=== PATIENT | female | born 1955 | race Caucasian/White ===

== ENCOUNTER 2019-05-23 15:08 | Observation (INO) | payer MEDICARE ==
--- NOTE | 2019-05-23 15:53 | ED ---
General Adult HPI - General Chief complaint: Arrhythmia/Palpitations Stated complaint: A-Fib Time Seen by Provider: 05/23/19 15:35 Source: patient, RN notes reviewed Mode of arrival: ambulatory Limitations: no limitations - History of Present Illness Initial comments: Patient is a pleasant [age]-year-old female presenting to the emergency department with atrial fibrillation. Patient has been feeling fatigued for the last several days. Patient went to her doctor and had testing done with concerns for atrophic ablation. Patient was advised to come to the emergency department. Patient denies any chest pain or palpitations. No dyspnea. Patient did have atrial fibrillation twice, once was 2 years ago and once was around 8 years ago. Patient is not currently on any anticoagulation. - Related Data Allergies Allergy/AdvReac Type Severity Reaction Status Date / Time prochlorperazine Allergy Anaphylaxis Verified 05/23/19 15:24 [From Compazine] Review of Systems ROS Statement: Those systems with pertinent positive or pertinent negative responses have been documented in the HPI. ROS Other: All systems not noted in ROS Statement are negative. Constitutional: Denies: fever Eyes: Denies: eye pain ENT: Denies: ear pain Respiratory: Denies: cough, dyspnea Cardiovascular: Denies: chest pain, palpitations Endocrine: Reports: fatigue Gastrointestinal: Denies: abdominal pain Genitourinary: Denies: dysuria Musculoskeletal: Denies: back pain Skin: Denies: rash Neurological: Denies: weakness Past Medical History Past Medical History: Atrial Fibrillation, Hypertension Additional Past Medical History / Comment(s): lupus History of Any Multi-Drug Resistant Organisms: None Reported Past Surgical History: Cholecystectomy, Hysterectomy, Joint Replacement, Orthopedic Surgery Additional Past Surgical History / Comment(s): lt knee, sinus surgery Past Psychological History: No Psychological Hx Reported Smoking Status: Never smoker Past Alcohol Use History: None Reported Past Drug Use History: None Reported General Exam Limitations: no limitations General appearance: alert, in no apparent distress Head exam: Present: normocephalic Eye exam: Present: normal appearance, PERRL ENT exam: Present: normal oropharynx Neck exam: Present: normal inspection Respiratory exam: Present: normal lung sounds bilaterally Cardiovascular Exam: Present: irregular rhythm Expanded Peripheral pulses: 2+: Radial (R), Radial (L), Dorsalis Pedis (R), Dorsalis Pedis (L) GI/Abdominal exam: Present: soft. Absent: tenderness Extremities exam: Present: normal inspection. Absent: pedal edema, calf tenderness Neurological exam: Present: alert Psychiatric exam: Present: normal affect, normal mood Skin exam: Present: normal color Course Vital Signs 05/23/19 15:19 Temperature 97.6 F Pulse Rate 95 Respiratory 20 Rate Blood Pressure 158/88 O2 Sat by Pulse 96 Oximetry EKG Findings - EKG Comments: EKG Findings:: H a fibrillation with a rate of 93. QRS 90. QT 332. QTC 412. Left axis. Normal QRS. Nonspecific T waves. Medical Decision Making - Medical Decision Making Patient updated. Case discussed with Dr. Kam, who will admit for observation covering for Dr. Quintana. - Radiology Data Radiology results: image reviewed (Chest x-ray shows borderline cardiomegaly) Disposition Clinical Impression: Atrial fibrillation Disposition: ADMITTED IP TO THIS HOSP Is patient prescribed a controlled substance at d/c from ED?: No Referrals: Marla Garza MD [Primary Care Provider] - 1-2 days Decision Time: 15:53
[2019-05-23] MEDS ORDERED: NALOXONE 0.4 MG/ML 1 ML VIAL IV PRN (16:03)
[2019-05-23] MEDS ORDERED: HEPARIN SODIUM,PORCINE 5,000 UNIT/ML 1 ML VIAL IV PRN (16:03)
[2019-05-23] MEDS ORDERED: HEPARIN SODIUM,PORCINE 5,000 UNIT/ML 1 ML VIAL IV ONE (16:03)
[2019-05-23] MEDS ORDERED: DILTIAZEM 125 MG in SODIUM CHLORIDE 0.9% 100 ML IV SCH (16:15)
[2019-05-23] MEDS ORDERED: HEPARIN SOD,PORK IN 0.45% NACL 25,000 UNIT in 0.45% NACL 1 250ML.BAG IV SCH (16:15)
[2019-05-23 16:21] LABS: INR 1.1 (<1.2); Partial Thromboplastin Time 23.7 sec (22.0-30.0); Prothrombin Time 11.4 sec (9.0-12.0)
[2019-05-23] MEDS: SODIUM CHLORIDE 0.9% 1,000 ML IV SCH (16:34)
[2019-05-23 16:37] LABS: T4, Free (Free Thyroxine) 1.9 ng/dL (0.78-2.19)
--- NOTE | 2019-05-23 17:40 | P.HPIM ---
History of Present Illness Chief Complaint: Generalized weakness This is a very pleasant 63-year-old female with history of asthma, hypertension, hypothyroidism and paroxysmal atrial fibrillation who is presenting here from primary care physician office for evaluation of atrial fibrillation with rapid ventricular response. Patient presented today at her physician's office due to 1 month of worsening generalized weakness and shortness of breath and found to be in arrhythmia, irregular and tachycardic with a rate of [id number]. Patient was sent to ER for further evaluation Patient's symptoms started about a month ago. Couple weeks prior to this, patient had episode of URI like symptoms which she treated at home and symptoms resolved. Soon after she started noticing lack of energy, decreased stamina and exertional shortness of breath. There is no associated cough fever chills malaise chest pain palpitations or leg swelling or orthopnea. She would occasionally wake up in the middle of the night with shortness of breath that would resolve promptly after getting up in the recliner. Since she has history of asthma she attributed her symptoms to asthma flare and did not seek any medical attention. Over the last couple days her symptoms became more pronounced and shortness of breath was even at rest. She went then to her [facility] physician office who noticed the patient is in atrial fibrillation and secondary to emergency department. Patient denies any fever chills chest pain nausea vomiting abdominal pain dysuria polyuria headaches or vision changes. Patient reports that she had episode of atrial fibrillation for the first time about 10 years ago. She was treated and told the symptoms went away and she was not placed on any permanent therapy. She had another episode about 2 years ago when she had to be admitted to intensive care unit to [facility] and per patient she was cardioverted and discharged home again she did not end up on any long-term treatment or anticoagulation at that time. She reports having a stress test and echocardiogram at that time. She follows with Dr. Benavides from cardiology although she did not have any recent appointments. She denies taking any beta blockers, Cardizem, aspirin or anticoagulation. Patient believes that in February of last year she had an episode of palpitation and cyanosis shortness of breath that resolved quickly and she did not have a checkup. She has history of hypothyroidism which is taking a steady dose of levothyroxine and her TSH today is 2.3. She reports no new home medications or [id number] medications. She denies any alcohol, drug or tobacco use. Review of Systems Review of system was performed and is negative except mentioned in HPI Past Medical History Past Medical History: Atrial Fibrillation, Hypertension Additional Past Medical History / Comment(s): lupus History of Any Multi-Drug Resistant Organisms: None Reported Past Surgical History: Cholecystectomy, Hysterectomy, Joint Replacement, Orthopedic Surgery Additional Past Surgical History / Comment(s): lt knee, sinus surgery Past Psychological History: No Psychological Hx Reported Smoking Status: Never smoker Past Alcohol Use History: None Reported Past Drug Use History: None Reported Medications and Allergies Allergies Allergy/AdvReac Type Severity Reaction Status Date / Time prochlorperazine Allergy Anaphylaxis Verified 05/23/19 15:24 [From Compazine] Physical Exam Vitals: Vital Signs Temp Pulse Resp BP Pulse Ox 05/23/19 16:35 78 16 133/83 94 L 05/23/19 15:19 97.6 F 95 20 158/88 96 Intake and Output 05/23/19 05/23/19 05/23/19 06:59 14:59 22:59 Other: Weight 73.799 kg Vital Signs: I have reviewed the vital signs. GENERAL: Well-nourished, Well-developed , no apparent distress, cooperative Eyes: PERRL, extraoculry movements intact, clear conjunctiva Head: : Atraumatic external nose and ears, oropharyngeal mucosa is moist without lesions or exudates Neck: Symmetric, trachea midline, No thyromegaly, no masses or neck vain pulsation, no neck rigidity CVS: Irregularly irregular rhythm with rate in 70s, No murmurs or gallops. Peripheral pulses 2+ and equal in all extremities. RESP: Unlabored respiratory effort. Clear to auscultation bilaterally. Abdomen: Bowel sounds present in all 4 quadrants, Soft to palpation, Nontender/Nondistended, No hepatosplenomegaly, no hernias or masses, no CVA tnd erness Musculoskeletal: Extremities w/o deformity, No cyanosis or clubbing, no joint swelling Skin: Warm, Dry. No rashes or lesions Neuro: wood floor layer II-XII grossly intact, motor strenght 5/5 i upper and lower extremities, no clonus, patellar DTRs 2+ and sympetrical Psych: Awake, Alert, & Oriented (AAO) x3 Appropriate mood and affect Assessment and Plan Assessment: 1. Paroxysmal atrial fibrillation with rapid ventricular response Onset of her A. fib is uncertain but she's been having symptoms for about a month at least Clinically no obvious triggers, she does not appear to have active infection, TSH is normal, no clinical signs of dehydration and electrolytes normal She has relatively recent episode of URI. We will be checking an echo, sed rate and CRP Her rate has been controlled well with Cardizem drip and we will plan to switch her to oral Cardizem Her [id number] score is at least 2 for her gender and history of hypertension. She has no history of strokes or TIA or prior vascular disease. No history of diabetes. We will evaluate with echo if there is any CHF as her proBNP is quite elevated and she is cardiomegaly and the chest x-ray. She has no personal history of bleeding and her hemoglobin is normal. She denies history of aspirin or NSAIDs She will remain on heparin until evaluated by cardiology and might need to be switched to appropriate oral anticoagulants Cardiology consult 2. Hypertension Blood pressure has been stable and we can hold her home medications for now to allow more Cardizem 3. Hypothyroidism Continue home levothyroxine 4. Mild intermittent asthma Currently stable in no any active flare Patient is a full code is surrogate decision maker and is this was discussed with him Patient is currently admitted under observation for this we will be reevaluated once we have echocardiogram results and based on the response to the above treatment
[2019-05-23] MEDS: DILTIAZEM ORAL 60 MG TAB PO SCH ×3 (22:25→22:40)
[2019-05-24] MEDS: LEVOTHYROXINE 75 MCG TAB PO SCH (05:53)
[2019-05-24] MEDS: LEVOTHYROXINE 100 MCG TAB PO SCH (05:53)
[2019-05-24 06:41] LABS: Basophils # (A) 0.2 k/uL (0-0.2); Basophils % (A) 2 %; Eosinophils # (A) 1.7 k/uL (0-0.7); Eosinophils % (A) 22 %; HCT 39.6 % (34.0-46.0); HGB 12.4 gm/dL (11.4-16.0); Lymphocytes % (A) 26 %; MCH 30.3 pg (25.0-35.0); MCHC 31.3 g/dL (31.0-37.0); MCV 96.7 fL (80.0-100.0); Mean Platelet Volume 9.2; Monocytes # (A) 0.4 k/uL (0-1.0); Monocytes % (A) 6 %; Neutrophils # (A) 3.3 k/uL (1.3-7.7); Neutrophils % (A) 42 %; Platelet Count 236 k/uL (150-450); RDW 12.2 % (11.5-15.5)
[2019-05-24 06:50] LABS: INR 1.1 (<1.2); Partial Thromboplastin Time 64.7 sec (22.0-30.0); Prothrombin Time 11.3 sec (9.0-12.0)
[2019-05-24] MEDS: DILTIAZEM ORAL 60 MG TAB PO SCH ×4 (08:54→20:27)
[2019-05-24] MEDS: MONTELUKAST 10 MG TAB PO SCH (08:54)
[2019-05-24] MEDS: LOSARTAN 50 MG TAB PO SCH (08:54)
[2019-05-24] MEDS: SYMBICORT 160-4.5 MCG INHALER INHALATION SCH ×2 (09:25→21:02)
[2019-05-24 10:09] LABS: Erythrocyte Sedimentation Rate 6 mm/hr (0-20)
[2019-05-24 11:50] LABS: WBC 7.7 k/uL (3.8-10.6)
--- NOTE | 2019-05-24 16:47 | ECHOF ---
Referral Reason:a fibrillation MEASUREMENTS -------- HEIGHT: 170.2 cm WEIGHT: 71.2 kg BP: 136/79 RVIDd: 3.1 cm (< 3.3) IVSd: 1.1 cm (0.6 - 1.1) LVIDd: 4.0 cm (3.9 - 5.3) LVPWd: 1.1 cm (0.6 - 1.1) IVSs: 1.5 cm LVIDs: 3.2 cm LVPWs: 1.7 cm LA Diam: 3.8 cm (2.7 - 3.8) LAESV Index (A-L): 44.26 ml/m Ao Diam: 3.1 cm (2.0 - 3.7) AV Cusp: 2.3 cm (1.5 - 2.6) MV EXCURSION: 19.740 mm (> 18.000) MV EF SLOPE: 148 mm/s (70 - 150) EPSS: 0.6 cm RAP: 5.00 mmHg RVSP: 37.94 mmHg FINDINGS -------- Atrial fibrillation. This was a technically good study. The left ventricular size is normal. There is borderline concentric left ventricular hypertrophy. Overall left ventricular systolic function is mild-moderately impaired with, an EF between 40 - 45 % . The right ventricle is normal in size. LA is severely dilated >40 ml/m2 The right atrium is normal in size. Interatrial and interventricular septum intact. The aortic valve is trileaflet and appears structurally normal. The mitral valve leaflets are mildly thickened. Mild mitral regurgitation is present. Mild tricuspid regurgitation present. There is mild pulmonary hypertension. The right ventricular systolic pressure, as measured by Doppler, is 37.94mmHg. Trace/mild (physiologic) pulmonic regurgitation. The aortic root size is normal. Normal inferior vena cava with normal inspiratory collapse consistent with estimated right atrial pre ssure of 5 mmHg. There is no pericardial effusion. CONCLUSIONS -------- 1. Atrial fibrillation. 2. This was a technically good study. 3. The left ventricular size is normal. 4. There is borderline concentric left ventricular hypertrophy. 5. Overall left ventricular systolic function is mild-moderately impaired with, an EF between 40 - 45 %. 6. The right ventricle is normal in size. 7. LA is severely dilated >40 ml/m2 8. The right atrium is normal in size. 9. Interatrial and interventricular septum intact. 10. The aortic valve is trileaflet and appears structurally normal. 11. The mitral valve leaflets are mildly thickened. 12. Mild mitral regurgitation is present. 13. Mild tricuspid regurgitation present. 14. There is mild pulmonary hypertension. 15. The right ventricular systolic pressure, as measured by Doppler, is 37.94mmHg. 16. Trace/mild (physiologic) pulmonic regurgitation. 17. The aortic root size is normal. 18. Normal inferior vena cava with normal inspiratory collapse consistent with estimated right atrial pressure of 5 mmHg. 19. There is no pericardial effusion. MARINE OPERATIONS COORDINATOR: Adri Akhtar RDCS
[2019-05-24] MEDS: RIVAROXABAN 20 MG TAB PO SCH (17:20)
[2019-05-24] MEDS: SODIUM CHLORIDE 0.9% 1,000 ML IV SCH (17:20)
--- NOTE | 2019-05-24 21:53 | CONS ---
CONSULTATION CHIEF COMPLAINT: New onset atrial fibrillation. HISTORY OF PRESENT ILLNESS: Cheryle is a 63-year-old lady with history of paroxysmal atrial fibrillation, asthma, hypertension, and hypothyroidism, who was with her primary care physician complaining of worsening fatigue, weakness and shortness of breath. She was found to be in atrial fibrillation with poorly controlled ventricular rate hence she was sent to the emergency room from where she got admitted. At the time of my evaluation, she is still is in irregular heart rhythm and however heart rate is well controlled. She is currently on intravenous heparin, oral Cardizem and Cozaar. She had an echocardiogram this morning. I am going to review the results. PAST MEDICAL HISTORY: Significant for paroxysmal atrial fibrillation, hypothyroidism, hypertension. CURRENT MEDICATIONS: Include Singulair, losartan 100 daily, Synthroid, cardia XT. ALLERGIES: ALLERGIC TO COMPAZINE. FAMILY HISTORY: Negative for premature coronary artery disease. SOCIAL HISTORY: Negative for smoking, EtOH abuse, or drug abuse. REVIEW OF SYSTEMS: HEENT is unremarkable. Cardiac as described above. Respiratory negative. GI negative. GENITOURINARY negative. ALLERGY negative. SKIN negative. MUSCULOSKELETAL negative. ENDOCRINE negative. ONCOLOGICAL: Negative. CONSTITUTIONAL negative. CENTRAL NERVOUS SYSTEM: Negative. Rest of the system review is not relevant. EXAM: At rest heart rate is 76 beats per minute, irregular. Blood pressure is 140/89, respiratory rate is 18, O2 sat is 95% on room air. There is no jugular venous distention. Carotid upstroke is normal. There is no bruit. Chest exam reveals good air entry bilaterally. Heart exam reveals first and second heart sounds, irregular rhythm. No murmur. Abdomen is soft, nontender. Exam of extremities did not reveal any edema. Peripheral pulses are felt. CUTTER HAND exam did not reveal focal neurological deficits. LABS: Show a hemoglobin of 12.4, platelet count is 236. TSH is 2.6, free T4 is 1.9. Her sodium is low. AST, ALT are slightly elevated. ASSESSMENT: Persistent atrial fibrillation with controlled ventricular rate. PLAN: Patient will continue on IV heparin. If the patient is covered for Eliquis or Xarelto, we will switch her to 1 of these 2 medications. I will review the echocardiogram. Once she is anticoagulated for 3 weeks, patient will undergo LILI cardioversion. She will follow up with her primary live hanger. MMODL / IJN: [id number] /
[2019-05-25] MEDS: LEVOTHYROXINE 75 MCG TAB PO SCH (06:18)
[2019-05-25] MEDS: LEVOTHYROXINE 100 MCG TAB PO SCH (06:18)
[2019-05-25 06:52] LABS: Basophils # (A) 0.1 k/uL (0-0.2); Basophils % (A) 2 %; Eosinophils # (A) 1.4 k/uL (0-0.7); Eosinophils % (A) 20 %; HCT 42.5 % (34.0-46.0); HGB 13.4 gm/dL (11.4-16.0); Lymphocytes # (A) 1.5 k/uL (1.0-4.8); Lymphocytes % (A) 22 %; MCH 30.5 pg (25.0-35.0); MCHC 31.5 g/dL (31.0-37.0); MCV 96.9 fL (80.0-100.0); Mean Platelet Volume 8.5; Monocytes # (A) 0.3 k/uL (0-1.0); Monocytes % (A) 5 %; Neutrophils # (A) 3.2 k/uL (1.3-7.7); Neutrophils % (A) 48 %; Platelet Count 257 k/uL (150-450); RBC 4.39 m/uL (3.80-5.40); RDW 12.1 % (11.5-15.5); WBC 6.7 k/uL (3.8-10.6)
[2019-05-25 07:10] LABS: INR 1.2 (<1.2); Prothrombin Time 12.5 sec (9.0-12.0)
[2019-05-25] MEDS: SYMBICORT 160-4.5 MCG INHALER INHALATION SCH (07:15)
--- NOTE | 2019-05-25 08:25 | P.PN ---
Subjective Patient is feeling well this morning. She does not have any palpitations chest pain shortness of breath. Her energy level is significantly better. She remains in atrial fibrillation rate controlled in 70s. She was started on Xarelto per cardiology with which she is quite comfortable. We discussed risks and benefits of anticoagulation. Objective - Vital Signs Vital signs: Vital Signs Temp 97.7 F 05/25/19 05:21 Pulse 72 05/25/19 05:21 Resp 16 05/25/19 05:21 BP 153/97 05/25/19 05:21 Pulse Ox 97 05/25/19 05:21 Intake & Output 05/24/19 05/25/19 05/25/19 18:59 06:59 18:59 Intake Total 1080 Balance 1080 Weight 72.3 kg Intake: Intake, IV Titration 180 Amount Sodium Chloride 0.9% 1, 180 000 ml @ 20 mls/hr IV . Q24H ELY Rx#:[id number] Oral 900 Other: # Voids 1 - Exam Patient is awake alert no any distress Lungs are clear to auscultation except cardiovascular she is irregularly irregular rate control S1-S2 Abdomen soft on tenderness Extremities without any edema - Labs CBC & Chem 7: 05/25/19 05:55 Labs: Abnormal Lab Results - Last 24 Hours (Table) 05/24/19 05/25/19 05/25/19 Range/Units 05:37 05:55 05:55 Eosinophils # 1.7 H 1.4 H (0-0.7) k/uL PT 12.5 H (9.0-12.0) sec INR 1.2 H (<1.2) Assessment and Plan Assessment: 1. Paroxysmal atrial fibrillation with rapid ventricular response Onset of her A. fib is uncertain but she's been having symptoms for about a month at least Clinically no obvious triggers, she does not appear to have active infection, TSH is normal, no clinical signs of dehydration and electrolytes normal She has relatively recent episode of URI. We will be checking an echo, sed rate and CRP Her rate has been controlled well with Cardizem drip and we will plan to switch her to oral Cardizem Her [id number] score is at least 2 for her gender and history of hypertension. She has no history of strokes or TIA or prior vascular disease. No history of diabetes. We will evaluate with echo if there is any CHF as her proBNP is quite elevated and she is cardiomegaly and the chest x-ray. She has quite enlarged left atrium with puts her at even more elevated risk of thromboembolism. She has no personal history of bleeding and her hemoglobin is normal. She denies history of aspirin or NSAIDs Patient started on Xarelto and long-acting Cardizem. We discussed risk and benefits onto coagulation and patient was comfortable to proceed with it. 2. Hypertension Blood pressure has been stable 3. Hypothyroidism Continue home levothyroxine TSH is normal 4. Mild intermittent asthma Currently stable in no any active flare Plan for discharge today if okay with cardiology. Patient will follow-up in next day or 2 with her primary care physician to recheck her blood pressure and she opted to follow-up with cardiology here as instructed.
--- NOTE | 2019-05-25 08:27 | P.PN ---
Subjective No new events. No shortness of breath or chest pain or palpitations. Objective - Vital Signs Vital signs: Vital Signs Temp 97.7 F 05/25/19 05:21 Pulse 72 05/25/19 05:21 Resp 16 05/25/19 05:21 BP 153/97 05/25/19 05:21 Pulse Ox 97 05/25/19 05:21 Intake & Output 05/24/19 05/25/19 05/25/19 18:59 06:59 18:59 Intake Total 1080 Balance 1080 Weight 72.3 kg Intake: Intake, IV Titration 180 Amount Sodium Chloride 0.9% 1, 180 000 ml @ 20 mls/hr IV . Q24H ELY Rx#:[id number] Oral 900 Other: # Voids 1 - Exam Patient is awake alert no any distress Lungs are clear to auscultation except cardiovascular she is irregularly irregular rate control S1-S2 Abdomen soft on tenderness Extremities without any edema - Labs CBC & Chem 7: 05/25/19 05:55 Labs: Abnormal Lab Results - Last 24 Hours (Table) 05/24/19 05/25/19 05/25/19 Range/Units 05:37 05:55 05:55 Eosinophils # 1.7 H 1.4 H (0-0.7) k/uL PT 12.5 H (9.0-12.0) sec INR 1.2 H (<1.2) Assessment and Plan Assessment: 1. Paroxysmal atrial fibrillation with rapid ventricular response Onset of her A. fib is uncertain but she's been having symptoms for about a month at least Clinically no obvious triggers, she does not appear to have active infection, TSH is normal, no clinical signs of dehydration and electrolytes normal She has relatively recent episode of URI. We will be checking an echo, sed rate and CRP Her rate has been controlled well with Cardizem drip and we will plan to switch her to oral Cardizem Her [id number] score is at least 2 for her gender and history of hypertension. She has no history of strokes or TIA or prior vascular disease. No history of diabetes. We will evaluate with echo if there is any CHF as her proBNP is quite elevated and she is cardiomegaly and the chest x-ray. She has quite enlarged left atrium with puts her at even more elevated risk of thromboembolism. She has no personal history of bleeding and her hemoglobin is normal. She denies history of aspirin or NSAIDs Patient started on Xarelto and long-acting Cardizem. We discussed risk and benefits onto coagulation and patient was comfortable to proceed with it. 2. Hypertension Blood pressure has been stable 3. Hypothyroidism Continue home levothyroxine TSH is normal 4. Mild intermittent asthma Currently stable in no any active flare Plan for discharge today if okay with cardiology. Patient will follow-up in next day or 2 with her primary care physician to recheck her blood pressure and she opted to follow-up with cardiology here as instructed.
[2019-05-25] MEDS ORDERED: DILTIAZEM CD 240 MG CAP.ER.24H PO SCH (09:00)
[2019-05-25 09:08] VITALS: RESP 18
[2019-05-25] MEDS: RIVAROXABAN 20 MG TAB PO SCH (09:14)
[2019-05-25] MEDS: MONTELUKAST 10 MG TAB PO SCH (09:14)
[2019-05-25] MEDS: LOSARTAN 50 MG TAB PO SCH (09:14)
[2019-05-25] MEDS ORDERED: METOPROLOL TARTRATE 25 MG TAB PO SCH (11:30)
[2019-05-25 13:14] VITALS: PULSE 90
[2019-05-25 16:26] VITALS: BP 141/88; TEMP 97.8
--- NOTE | 2019-05-25 17:33 | P.DS ---
Providers Date of admission: 05/23/19 16:04 Attending physician: Ritika Lyles DO Consults: 05/23/19 16:04 Consult Physician Urgent Consulting Provider: Moose Miranda Consult Reason/Comments: a fib Do you want consulting provider notified?: Yes Primary care physician: Marla Garza [place] [facility] Course: Date of discharge: 05/25/2019 Discharge diagnoses: Atrial fibrillation with rapid ventricular response Consultants: Dr. Lanier cardiology Pertinent studies and results: Echocardiogram: EF 4045 percent and severe dilation of LA Discharge medications: Cardizem LA 120 mg twice a day (home medication discontinued " Xarelto 20 mg daily at bedtime Omeprazole Continuation of her usual home medications: Levothyroxine Losartan Montelukast Hospital course: This is a very pleasant 63-year-old female who was sent from primary care office physician after it was a technically she has atrial fibrillation with rapid ventricular response in the office. She has been experiencing intermittent dyspnea, chest discomfort and palpitations for about a month prior to admission and they got particularly severe on the day of admission. Hospital and was found that she has A. fib with RVR. Heart rate was in 100 Paul 110 with a stable blood pressure. Initial blood work did not show any significant abnormalities. Chest x-ray did not show any acute abnormalities. She was started on heparin and Cardizem drip. She remained in atrial fibrillation and her rate was controlled in 70s with stable blood pressure. Subsequently she was converted to oral Cardizem and Xarelto as per cardiology recommendations. Patient was placed on anticoagulation after discussion of risks and benefits. Her thromboembolic risk is elevated given hypertension and her age and significant dilation of left atrium on echo. She does not have any personal history of bleeding. She reported some family history of peptic ulcer disease but not personal history. She has history of bariatric surgery. We will advise her to refrain from usage of any NSAIDs or aspirin at this point of time. We advised her to to start omeprazole We will advise patient to obtain usual vitamin levels as appropriate follow-up for her weight loss with her primary care physician. Cardiology recommended patient to remain on Xarelto and Cardizem and follow-up in 3 weeks for LILI and further management. On the day of discharge patient had some fluctuations in heart rate. She went bradycardic with added metoprolol hence cardiology recommended against beta blockers at this time. Patient will be contacting sheet roller operator office tomorrow upon discharge. I did offer patient to stay To be observed but she had her decided to go home and follow-up with sheet roller operator tomorrow morning. Patient was cleared by cardiology to be discharged today on above-mentioned medications. Plan - Discharge Summary Discharge Rx Participant: No New Discharge Prescriptions: New Rivaroxaban [Xarelto] 20 mg PO W/SUPPER #30 tab Omeprazole [PriLOSEC] 20 mg PO AC-BRKFST #30 cap Continue Montelukast [Singulair] 10 mg PO DAILY Levothyroxine Sodium [Synthroid] 175 mcg PO DAILY Fluticasone Propion/Salmeterol [Fluticasone-Salmeterol 500-50] 1 inhalation PO BID Losartan Potassium 100 mg PO DAILY Diltiazem HCl [Cartia Xt] 240 mg PO DAILY #30 cap Discharge Medication List Fluticasone Propion/Salmeterol [Fluticasone-Salmeterol 500-50] 1 inhalation PO BID 05/23/19 [History] Levothyroxine Sodium [Synthroid] 175 mcg PO DAILY 05/23/19 [History] Losartan Potassium 100 mg PO DAILY 05/23/19 [History] Montelukast [Singulair] 10 mg PO DAILY 05/23/19 [History] Diltiazem HCl [Cartia Xt] 240 mg PO DAILY #30 cap 05/25/19 [Rx] Omeprazole [PriLOSEC] 20 mg PO AC-BRKFST #30 cap 05/25/19 [Rx] Rivaroxaban [Xarelto] 20 mg PO W/SUPPER #30 tab 05/25/19 [Rx] Follow up Appointment(s)/Referral(s): Marla Garza MD [Primary Care Provider] - 1-2 days Rhett Paiz MD [STAFF PHYSICIAN] - 1-2 Days ([facility] will call with appointment; please contact office if appointment not scheduled [phone]) Patient Instructions/Handouts: Rivaroxaban (By mouth), A-fib (Atrial Fibrillation) (DC) Activity/Diet/Wound Care/Special Instructions: Do not use any NSAIDs like Motrin or naproxen or aspirin while on Xarelto Discharge Disposition: HOME SELF-CARE
--- NOTE | 2019-05-25 23:52 | PN ---
PROGRESS NOTE The patient remains in atrial fibrillation. She is actually in controlled ventricular rate with a heart rate of 85 beats per minute. She had episodes of fast ventricular rate. On exam, comfortable at rest. Heart rate is negative. Blood pressure 148/92. Respiratory rate 18. Chest exam reveals good air entry bilaterally. Heart exam reveals first and second heart sounds, irregular rhythm. Abdomen soft. Exam of the extremities did not reveal any edema. Peripheral pulses are felt. An echocardiogram on this exam revealed mild LV dysfunction with an ejection fraction of 40 to 45%. There is mild mitral and tricuspid regurgitation noted also. ASSESSMENT: Persistent atrial fibrillation with poorly controlled ventricular rate. PLAN: I will increase the dose of Lopressor to 25 b.i.d. Continue the Cozaar. Continue the Cardizem and Xarelto. She is stable for discharge and have outpatient follow up and she will need an outpatient stress test given the cardiomyopathy noted on the echo. MMODL / IJN: [id number] /
== END 2019-05-25 17:54 | disposition home or self-care (01) ==
LOC: EC 15:08 → 1SOBS 16:04 → 3SCARD 16:36
PROVIDERS: ADMIT Internal Medicine; ATTEND Internal Medicine
DX: I48.0 Paroxysmal atrial fibrillation (principal); I10 Essential (primary) hypertension; E03.9 Hypothyroidism, unspecified; J45.20 Mild intermittent asthma, uncomplicated; M32.9 Systemic lupus erythematosus, unspecified; I08.1 Rheumatic disorders of both mitral and tricuspid valves; Z88.8 Allergy status to other drugs, medicaments and biological substances; Z79.890 Hormone replacement therapy; Z79.899 Other long term (current) drug therapy; Z90.49 Acquired absence of other specified parts of digestive tract; Z90.710 Acquired absence of both cervix and uterus; Z96.652 Presence of left artificial knee joint
CPT/HCPCS: 93005 ×2; 96366 ×3; 96376; 96368; 96365; 99285; 36415; 94640 ×3; 93306; 84439; 84481; 83880; 85652; 84443; 85025 ×2; 85610 ×3; 85730 ×2; 86140; G0378 ×3; J1644 ×2

== ENCOUNTER → 2019-05-23 | Outpatient (CLI) | payer MEDICARE ==
--- NOTE | 2019-05-23 11:17 | XR ---
EXAMINATION TYPE: XR chest 2V DATE OF EXAM: 05/23/2019 COMPARISON: NONE TECHNIQUE: PA and lateral views submitted. HISTORY: Shortness of breath FINDINGS: The lungs are clear and there is no pneumothorax, pleural effusion, or focal pneumonia. Heart size at the upper limits of normal. No overt failure. Hypertrophic and degenerative change of the spine. H ypertrophic change right AC joint. IMPRESSION: 1. No acute process. Borderline to mild cardiomegaly. No overt failure.
[2019-05-23 12:19] LABS: HCT 44.8 % (34.0-46.0); HGB 14.3 gm/dL (11.4-16.0); MCH 30.6 pg (25.0-35.0); MCHC 31.9 g/dL (31.0-37.0); MCV 95.9 fL (80.0-100.0); Mean Platelet Volume 8.4; Platelet Count 334 k/uL (150-450); RBC 4.67 m/uL (3.80-5.40); RDW 12.1 % (11.5-15.5); WBC 9.9 k/uL (3.8-10.6)
[2019-05-23 12:32] LABS: ALT 35 U/L (4-34); AST 30 U/L (14-36); African American GFR (CKD) 74 (>60 ml/min/1.73 sqM); Albumin 4.3 g/dL (3.5-5.0); Albumin/Globulin Ratio 1.5; Alkaline Phosphatase 69 U/L (38-126); Anion Gap 9 mmol/L; Blood Urea Nitrogen 16 mg/dL (7-17); Calcium 9.3 mg/dL (8.4-10.2); Carbon Dioxide 25 mmol/L (22-30); Chloride 101 mmol/L (98-107); Globulin 2.9 g/dL; Glucose 91 mg/dL (74-99); LDH 485 U/L (313-618); Non-African American GFR(CKD) 64 (>60 ml/min/1.73 sqM); Potassium 4.1 mmol/L (3.5-5.1); Sodium 135 mmol/L (137-145); Total Protein 7.2 g/dL (6.3-8.2)
[2019-05-23 13:02] LABS: Creatine Kinase MB 0.8 ng/mL (0.0-2.4); Troponin I <0.012 ng/mL (0.000-0.034)
== END | disposition home or self-care (01) ==
LOC: LABWHC1 10:53
PROVIDERS: ATTEND Family Medicine
DX: I51.7 Cardiomegaly (principal); I48.91 Unspecified atrial fibrillation; R06.00 Dyspnea, unspecified; R06.02 Shortness of breath; R07.9 Chest pain, unspecified
CPT/HCPCS: 36415; 71046; 80053; 82553; 83615; 83735; 84443; 84484; 85027; 85379; 93005

== ENCOUNTER → 2019-07-04 | Day surgery (SDC) | payer MEDICARE ==
[2019-07-02 11:34] VITALS: BMI 24.3
[~2019-07-04] MED LIST: BENZOCAINE SPRAY 1 CAN TOPICAL ONE; LACTATED RINGERS 1,000 ML IV SCH; LIDOCAINE 1% (10MG/ML) FOR IV START INTRADERMA PRN; PROPOFOL 10 MG/ML 20 ML VIAL IV ONE; SODIUM CHLORIDE 0.9% 1,000 ML IV SCH
[2019-07-04 06:45] VITALS: TEMP 97.9
[2019-07-04 07:04] LABS: Glucose,Whole Blood 110 mg/dL (75-99)
[2019-07-04 07:33] LABS: Calcium 8.8 mg/dL (8.4-10.2); Potassium 4.3 mmol/L (3.5-5.1)
[2019-07-04 08:30] VITALS: RESP 18
[2019-07-04 10:28] VITALS: BP 174/86; PULSE 65
--- NOTE | 2019-07-04 13:44 | LTR ---
DATE OF SERVICE: 07/04/19 RE: Cheryle Johnson Dear Marla; I performed transesophageal echo and cardioversion on your patient, Cheryle Johnson. A detailed report is enclosed for your records. I am happy to report to you that patient converted to sinus rhythm. I hope that the patient stays in sinus rhythm. If she does not, I am going to start her on rhythm suppressive therapy either in the form of flecainide or Rythmol and make another attempt at cardioversion. Thank you for giving me the privilege to participate in the care of this pleasant lady. Sincerely, MD KADE Stoner / KIM: [id number] /
--- NOTE | 2019-07-31 09:09 | ECHOT ---
TRANSESOPHAGEAL ECHOCARDIOGRAM DATE OF PROCEDURE: 07/04/2019. INDICATION: Persistent atrial fibrillation. PROCEDURE: After obtaining informed consent, transesophageal echocardiogram was performed in left lateral position using an Omniplane probe. Local and IV sedation were obtained by the dough braker. The patient tolerated the procedure well without any obvious immediate complications. FINDINGS: 1. There is no evidence of intracardiac thrombus within the left atrium, right atrium, right ventricle or left ventricle or left atrial appendage. 2. Left ventricle has normal size and systolic function. 3. Left atrium appears mildly enlarged. 4. Aorta is free of aneurysm or dissection. 5. Interatrial septum: There is no evidence of [id number] shunt by color-flow Doppler or kfioo-nj-dynl shunt by agitated saline contrast study. 6. Mitral valve is anatomically normal. There is mild to moderate mitral regurgitation noted. 7. Tricuspid valve appears normal. There is mild tricuspid regurgitation noted. 8. Aortic valve is a 3-leaflet valve. There is no evidence of aortic stenosis or regurgitation. CONCLUSIONS: 1. Preserved left ventricular systolic function. 2. No evidence of intracardiac thrombus. 3. The patient will proceed with cardioversion. MMODL / IJN: [id number] /
--- NOTE | 2019-07-31 09:11 | CE ---
CARDIAC ELECTROPHYSIOLOGY REPORT CARDIOVERSION NOTE: After obtaining informed consent, cardioversion was performed for persistent atrial fibrillation. After making sure that the patient does not have any intracardiac thrombus and patient had been adequately anticoagulated with a novel anticoagulant. Patient received one 200 joules of synchronized DC current shock following which she converted to sinus rhythm. PLAN: Patient will continue with the anticoagulant. KADE / ROBINSONN: [id number] /
== END ==
LOC: CATHCVL 06:30
PROVIDERS: ATTEND Internal Medicine Cardiovascular Disease
DX: I48.19 Other persistent atrial fibrillation (principal); I08.1 Rheumatic disorders of both mitral and tricuspid valves; I10 Essential (primary) hypertension; I42.9 Cardiomyopathy, unspecified; Z79.890 Hormone replacement therapy; Z79.01 Long term (current) use of anticoagulants; Z79.899 Other long term (current) drug therapy; Z88.8 Allergy status to other drugs, medicaments and biological substances
CPT/HCPCS: 93312; 93005; 93325; 92960; 80048; J2704; 93320

== ENCOUNTER → 2020-07-15 | Outpatient (CLI) | payer MEDICARE ==
--- NOTE | 2020-07-23 12:00 | MM ---
Reason for exam: screening (asymptomatic). Last mammogram was performed 1 year and 6 months ago. History: Patient is postmenopausal. Took estrogen for 10 years beginning at age 36. Physical Findings: A clinical breast exam by your physician is recommended on an annual basis and results should be correlated with mammographic findings. MG 3D Screening Mammo W/Cad Bilateral CC and MLO view(s) were taken. Prior study comparison: January 27, 2019, mammogram, performed at [facility]. December 12, 2017, mammogram. There are scattered fibroglandular densities. There is chronic nodularity bilaterally. A few scattered benign punctate calcifications. Oil cyst calcifications redemonstrated. medial right breast. No significant changes when compared with prior studies. ASSESSMENT: Negative, BI-RAD 1 RECOMMENDATION: Routine screening mammogram of both breasts in 1 year.
== END | disposition home or self-care (01) ==
LOC: RADMAMWWP 09:34
PROVIDERS: ATTEND Family Medicine
DX: Z12.31 Encounter for screening mammogram for malignant neoplasm of breast (principal)
CPT/HCPCS: 77063; 77067

== ENCOUNTER → 2020-07-21 | Outpatient (CLI) | payer MEDICARE | END | disposition home or self-care (01) | LOC: LABWHC1 12:32 | PROVIDERS: ATTEND Family Medicine | DX: Z20.822 Contact with and (suspected) exposure to COVID-19 (principal); R07.0 Pain in throat; R05 Cough | CPT/HCPCS: U0003; C9803; U0005 ==

== ENCOUNTER 2024-08-16 18:26 | Inpatient (IN) | payer MEDICARE ==
--- NOTE | 2024-08-16 18:57 | ED ---
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 Patient endorses associated intermittent palpitations. Denies radiating pain, presyncope, dizziness, diaphoresis, current dyspnea. Patient states she did experience shortness of breath starting 2 days ago that resolved prior to start of current symptoms. Endorses use of Eliquis. Patient has a DNR order. Denies fever, chills, abdominal pain, N/V/D. MD Complaint: rapid heart beat, palpitations Onset/Timin -: hour(s) Time: 17:30 Context: occurred during rest Arrhythmia History: atrial fibrillation Associated Symptoms: chest pain, shortness of breath (Prior to current symptoms, started 2 days ago, now resolved) - Related Data Home Medications Medication Instructions Recorded Confirmed Fluticasone Propion/Salmeterol 1 inhalation PO BID 05/23/19 07/04/19 [Fluticasone-Salmeterol 500-50] Levothyroxine Sodium [Synthroid] 175 mcg PO DAILY 05/23/19 07/04/19 Losartan Potassium 50 mg PO HS 05/23/19 07/04/19 Montelukast [Singulair] 10 mg PO HS 05/23/19 07/04/19 Metoprolol Succinate [Toprol XL] 50 mg PO HS 07/02/19 07/04/19 Rivaroxaban [Xarelto] 20 mg PO W/SUPPER 07/02/19 07/04/19 Previous Rx's Medication Instructions Recorded Omeprazole [PriLOSEC] 20 mg PO AC-BRKFST #30 cap 05/25/19 amLODIPine [Norvasc] 5 mg PO DAILY #90 tab 07/04/19 Allergies Allergy/AdvReac Type Severity Reaction Status Date / Time prochlorperazine Allergy Anaphylaxis Verified 08/16/24 18:38 [From Compazine] Review of Systems ROS Statement: Those systems with pertinent positive or pertinent negative responses have been documented in the HPI. ROS Other: All systems not noted in ROS Statement are negative. Past Medical History Past Medical History: Atrial Fibrillation, Asthma, CVA/TIA, Hypertension, Osteoarthritis (OA) Additional Past Medical History / Comment(s): lupus, migraines, Stroke (July 2024) History of Any Multi-Drug Resistant Organisms: None Reported Past Surgical History: Cholecystectomy, Hysterectomy, Joint Replacement, Orthopedic Surgery Additional Past Surgical History / Comment(s): lt knee replaced, sinus surgery Past Anesthesia/Blood Transfusion Reactions: Previous Problems w/ Anesthesia Additional Past Anesthesia/Blood Transfusion Reaction / Comment(s): slow to wake up Past Psychological History: No Psychological Hx Reported Smoking Status: Never smoker Past Alcohol Use History: None Reported Past Drug Use History: None Reported General Exam Limitations: no limitations General appearance: alert, in no apparent distress Head exam: Present: atraumatic, normocephalic, normal inspection Eye exam: Present: normal appearance, PERRL, EOMI. Absent: scleral icterus, conjunctival injection, periorbital swelling ENT exam: Present: normal exam, mucous membranes moist Neck exam: Present: normal inspection. Absent: tenderness, meningismus, lymphadenopathy Respiratory exam: Present: normal lung sounds bilaterally. Absent: respiratory distress, wheezes, rales, rhonchi, stridor Cardiovascular Exam: Present: regular rate, normal rhythm, normal heart sounds. Absent: systolic murmur, diastolic murmur, rubs, gallop, clicks GI/Abdominal exam: Present: soft, normal bowel sounds. Absent: distended, tenderness, guarding, rebound, rigid Extremities exam: Present: normal inspection, full ROM, normal capillary refill. Absent: tenderness, pedal edema, joint swelling, calf tenderness Back exam: Present: normal inspection Neurological exam: Present: alert, oriented X3, CN II-XII intact, other (Residual right side facial weakness noted) Psychiatric exam: Present: normal affect, normal mood Skin exam: Present: warm, dry, intact, normal color. Absent: rash Course Vital Signs 08/16/24 08/16/24 08/16/24 18:30 20:09 20:55 Temperature 98.1 F Pulse Rate 60 117 H 66 Respiratory 16 20 16 Rate Blood Pressure 113/91 122/70 116/66 O2 Sat by Pulse 97 95 95 Oximetry 08/16/24 22:25 Temperature Pulse Rate 78 Respiratory 18 Rate Blood Pressure 137/67 O2 Sat by Pulse 97 Oximetry Medical Decision Making - Medical Decision Making Was pt. sent in by a medical professional or institution (, LUIS, MONORAIL OPERATOR, urgent care, hospital, or prison...) When possible be specific @ -[facility] Did you speak to anyone other than the patient for history (EMS, parent, family, police, friend...)? What history was obtained from this source @ -No Did you review nursing and triage notes (agree or disagree)? Why? @ -I reviewed and agree with nursing and triage notes Were old charts reviewed (outside hosp., previous admission, EMS record, old EKG, old radiological studies, urgent care reports/EKG's, prison records)? Report findings @ -No old charts were reviewed Differential Diagnosis (chest pain, altered mental status, abdominal pain women, abdominal pain men, vaginal bleeding, weakness, fever, dyspnea, syncope, headache, dizziness, GI bleed, back pain, seizure, CVA, palpatations, mental health, musculoskeletal)? @ -Differential Chest Pain: Stable Angina, Unstable Angina, STEMI, NSTEMI Aortic Dissection, Pneumothorax, Musculoskeletal, Esophageal Spasm GERD, Cholecystitis, Pancreatitis, Zoster, this is not meant to be an all-inclusive list. EKG interpreted by me (3pts min.). @ -A-fib with RVR. Lead III T wave inversion noted. No ST deviation ventricular rate 105 bpm, QRS 106 ms, QTc 413 ms. X-rays interpreted by me (1pt min.). @ -CXR shows no acute cardiopulmonary process. CT interpreted by me (1pt min.). @ -None done U/S interpreted by me (1pt. min.). @ -None done What testing was considered but not performed or refused? (CT, X-rays, U/S, labs)? Why? @ -None What meds were considered but not given or refused? Why? @ -None Did you discuss the management of the patient with other professionals (professionals i.e. LUIS Bonilla, MONORAIL OPERATOR, lab, RT, psych nurse, social scientist, floor and wall applier liquid, teacher, fire officer, director of casework)? Give summary @ -No Was smoking cessation discussed for >3mins.? @ -No Was critical care preformed (if so, how long)? @ -No Were there social determinants of health that impacted care today? How? (Homelessness, low income, unemployed, alcoholism, drug addiction, transportation, low edu. Level, literacy, decrease access to med. care, fdc, rehab)? @ -No Was there de-escalation of care discussed even if they declined (Discuss DNR or withdrawal of care, Hospice)? DNR status @ -Patient has DNR order What co-morbidities impacted this encounter? (DM, HTN, Smoking, COPD, CAD, Cancer, CVA, ARF, Chemo, Hep., AIDS, mental health diagnosis, sleep apnea, morbid obesity)? @ -A-fib Was patient admitted / discharged? Hospital course, mention meds given and route, prescriptions, significant lab abnormalities, going to OR and other pertinent info. @ -Lab work shows leukocytosis 11.56, PTT 31.7. Hyponatremia 126, chloremia 92, BUN 18, protein 5.8, albumin 3.4. Otherwise normal kidney function and transaminase. Troponin 0.022. Repeat troponin obtained. ECG shows A-fib with RVR. CXR shows no acute cardiopulmonary process. Patient initially provided IV normal saline and p.o. chewable aspirin. Started on IV Cardizem. Patient states chest pain has resolved significantly following IV Cardizem. Repeat vit al signs: Pulse 78, blood pressure 137/67 and 97% room air. Spoke to Rosalia Knowles from [facility] for admission for A-fib with RVR and hyponatremia. Discussed patient with Dr. Castle. Undiagnosed new problem with uncertain prognosis? @ -No Drug Therapy requiring intensive monitoring for toxicity (Heparin, Nitro, Insulin, Cardizem)? @ -No Were any procedures done? @ -No Diagnosis/symptom? @ -A-fib with RVR, hyponatremia Acute, or Chronic, or Acute on Chronic? @ -Acute Uncomplicated (without systemic symptoms) or Complicated (systemic symptoms)? @ -Complicated Side effects of treatment? @ -No Exacerbation, Progression, or Severe Exacerbation? @ -No Poses a threat to life or bodily function? How? (Chest pain, [place], [place], pneumonia, PE, COPD, DKA, ARF, appy, cholecystitis, CVA, Diverticulitis, Homicidal, Suicidal, threat to staff... and all critical care pts) @ -A-fib with RVR, inadequate perfusion potentially causing endorgan damage - Lab Data Result diagrams: 08/16/24 19:25 08/16/24 19:25 Lab Results 08/16/24 08/16/24 08/16/24 Range/Units 19:25 19: 19:25 WBC 11.56 H (4.50-10.00) 10*3/uL RBC 4.04 L (4.10-5.20) 10*6/uL Hgb 12.6 (12.0-15.0) g/dL Hct 35.3 L (37.2-46.3) % MCV 87.4 (80.0-97.0) fL MCH 31.2 (27.0-32.0) pg MCHC 35.7 (32.0-37.0) g/dL Plt Count 319 (140-440) 10*3/uL MPV 9.8 (9.5-12.2) fL Immature Gran % (Auto) 0.3 % Neutrophils % 74.3 % Lymphocytes % 11.7 % Monocytes % 8.4 % Eosinophils % 4.2 % Basophils % 1.1 % Immature Gran # 0.03 (0.00-0.04) 10*3/uL Neutrophils # 8.59 H (1.80-7.70) 10*3/uL Lymphocytes # 1.35 (0.90-5.00) 10*3/uL Monocytes # 0.97 (0.20-1.00) 10*3/uL Eosinophils # 0.49 H (0.04-0.35) 10*3/uL Basophils # 0.13 H (0.00-0.10) 10*3/uL PT 12.4 (10.0-12.5) sec INR 1.1 (<1.2) APTT 31.7 H (22.0-30.0) sec Sodium 126 L (137-145) mmol/L Potassium 3.6 (3.5-5.1) mmol/L Chloride 92 L (98-107) mmol/L Carbon Dioxide 24 (22-30) mmol/L Anion Gap 10 mmol/L BUN 18 H (7-17) mg/dL Creatinine 0.66 (0.52-1.04) mg/dL Est GFR (CKD-EPI)AfAm >90 (>60 ml/min/1.73 sqM) Est GFR (CKD-EPI)NonAf >90 (>60 ml/min/1.73 sqM) Glucose 101 H (74-99) mg/dL Calcium 9.0 (8.4-10.2) mg/dL Magnesium 1.8 (1.6-2.3) mg/dL Total Bilirubin 0.6 (0.2-1.3) mg/dL AST 26 (14-36) U/L ALT 16 (4-34) U/L Alkaline Phosphatase 64 (38-126) U/L Troponin I (0.000-0.034) ng/mL Total Protein 5.8 L (6.3-8.2) g/dL Albumin 3.4 L (3.5-5.0) g/dL 08/16/24 Range/Units 19:25 WBC (4.50-10.00) 10*3/uL RBC (4.10-5.20) 10*6/uL Hgb (12.0-15.0) g/dL Hct (37.2-46.3) % MCV (80.0-97.0) fL MCH (27.0-32.0) pg MCHC (32.0-37.0) g/dL Plt Count (140-440) 10*3/uL MPV (9.5-12.2) fL Immature Gran % (Auto) % Neutrophils % % Lymphocytes % % Monocytes % % Eosinophils % % Basophils % % Immature Gran # (0.00-0.04) 10*3/uL Neutrophils # (1.80-7.70) 10*3/uL Lymphocytes # (0.90-5.00) 10*3/uL Monocytes # (0.20-1.00) 10*3/uL Eosinophils # (0.04-0.35) 10*3/uL Basophils # (0.00-0.10) 10*3/uL PT (10.0-12.5) sec INR (<1.2) APTT (22.0-30.0) sec Sodium (137-145) mmol/L Potassium (3.5-5.1) mmol/L Chloride (98-107) mmol/L Carbon Dioxide (22-30) mmol/L Anion Gap mmol/L BUN (7-17) mg/dL Creatinine (0.52-1.04) mg/dL Est GFR (CKD-EPI)AfAm (>60 ml/min/1.73 sqM) Est GFR (CKD-EPI)NonAf (>60 ml/min/1.73 sqM) Glucose (74-99) mg/dL Calcium (8.4-10.2) mg/dL Magnesium (1.6-2.3) mg/dL Total Bilirubin (0.2-1.3) mg/dL AST (14-36) U/L ALT (4-34) U/L Alkaline Phosphatase (38-126) U/L Troponin I 0.022 (0.000-0.034) ng/mL Total Protein (6.3-8.2) g/dL Albumin (3.5-5.0) g/dL Disposition Clinical Impression: Atrial fibrillation with RVR, Hyponatremia Disposition: ADMITTED IP TO THIS [facility] Condition: Fair Time of Disposition: 21:45 Decision Date: 08/16/24 Decision Time: 21:45
[2024-08-16] MEDS: ASPIRIN 81 MG PO STA (19:13)
[2024-08-16 19:46] LABS: Basophils # (A) 0.13 10*3/uL (0.00-0.10); Basophils % (A) 1.1 %; Eosinophils # (A) 0.49 10*3/uL (0.04-0.35); Eosinophils % (A) 4.2 %; HCT 35.3 % (37.2-46.3); HGB 12.6 g/dL (12.0-15.0); Lymphocytes # (A) 1.35 10*3/uL (0.90-5.00); Lymphocytes % (A) 11.7 %; MCH 31.2 pg (27.0-32.0); MCHC 35.7 g/dL (32.0-37.0); MCV 87.4 fL (80.0-97.0); Mean Platelet Volume 9.8 fL (9.5-12.2); Monocytes # (A) 0.97 10*3/uL (0.20-1.00); Monocytes % (A) 8.4 %; Neutrophils # (A) 8.59 10*3/uL (1.80-7.70); Neutrophils % (A) 74.3 %; Platelet Count 319 10*3/uL (140-440); RBC 4.04 10*6/uL (4.10-5.20); RDW 12.2 % (11.5-14.5); WBC 11.56 10*3/uL (4.50-10.00)
[2024-08-16] MEDS: SODIUM CHLORIDE 0.9% 1,000 ML IV STA (19:48)
--- NOTE | 2024-08-16 19:50 | XR ---
EXAMINATION TYPE: XR chest 2V DATE OF EXAM: 08/16/2024 7:41 PM COMPARISON: Chest radiographs from 05/23/2019 CLINICAL INDICATION: Female, 68 years old with history of dysrhythmia; TECHNIQUE: XR chest 2V Frontal and lateral views of the chest. FINDINGS: Lungs/Pleura: There is no evidence of pleural effusion, focal consolidation, or pneumothorax. Pulmonary vascularity: Unremarkable. Heart/mediastinum: Cardiomediastinal silhouette is unremarkable. Musculoskeletal: No acute osseous pathology. IMPRESSION: No acute cardiopulmonary disease/process. [facility], , 08/16/2024 7:48 PM
[2024-08-16 19:59] LABS: INR 1.1 (<1.2); Partial Thromboplastin Time 31.7 sec (22.0-30.0); Prothrombin Time 12.4 sec (10.0-12.5)
[2024-08-16] MEDS: SODIUM CHLORIDE 0.9% 1,000 ML IV ONE (19:59)
[2024-08-16 20:00] LABS: ALT 16 U/L (4-34); AST 26 U/L (14-36); African American GFR (CKD) >90 (>60 ml/min/1.73 sqM); Albumin 3.4 g/dL (3.5-5.0); Alkaline Phosphatase 64 U/L (38-126); Anion Gap 10 mmol/L; Blood Urea Nitrogen 18 mg/dL (7-17); Carbon Dioxide 24 mmol/L (22-30); Chloride 92 mmol/L (98-107); Glucose 101 mg/dL (74-99); Magnesium 1.8 mg/dL (1.6-2.3); Non-African American GFR(CKD) >90 (>60 ml/min/1.73 sqM); Potassium 3.6 mmol/L (3.5-5.1); Sodium 126 mmol/L (137-145); Total Bilirubin 0.6 mg/dL (0.2-1.3); Total Protein 5.8 g/dL (6.3-8.2)
[2024-08-16] MEDS: DILTIAZEM 125 MG in DEXTROSE 5% IN WATER 100 ML IV SCH (20:22)
[2024-08-16] MEDS: DILTIAZEM 5 MG/ML 5 ML VIAL IVP STA (20:26)
[2024-08-16] MEDS ORDERED: ONDANSETRON 4 MG/2 ML VIAL IVP PRN (22:28)
[2024-08-16] MEDS ORDERED: MORPHINE SULFATE 4 MG/ML SYRINGE IV PRN (22:28)
[2024-08-16] MEDS ORDERED: NALOXONE 0.4 MG/ML 1 ML VIAL IV PRN (22:28)
[2024-08-17 01:19] LABS: African American GFR (CKD) >90 (>60 ml/min/1.73 sqM); Anion Gap 8 mmol/L; Blood Urea Nitrogen 15 mg/dL (7-17); Calcium 8.6 mg/dL (8.4-10.2); Carbon Dioxide 23 mmol/L (22-30); Chloride 94 mmol/L (98-107); Glucose 98 mg/dL (74-99); Non-African American GFR(CKD) >90 (>60 ml/min/1.73 sqM); Potassium 3.6 mmol/L (3.5-5.1); Sodium 125 mmol/L (137-145)
[2024-08-17] MEDS: LEVOTHYROXINE 75 MCG TAB PO SCH (06:17)
[2024-08-17] MEDS: PANTOPRAZOLE 40 MG TABLET PO SCH (06:17)
[2024-08-17] MEDS: LEVOTHYROXINE 100 MCG TAB PO SCH (06:17)
[2024-08-17] MEDS: SYMBICORT 160-4.5 MCG INHALER INHALATION SCH (08:20)
[2024-08-17] MEDS: amLODIPine 5 MG TAB PO SCH (08:51)
[2024-08-17] MEDS: METOPROLOL SUCCINATE (ER) 50 MG TAB.ER.24H PO SCH (08:51)
--- NOTE | 2024-08-17 09:35 | P.CRDCN ---
History of Present Illness History of present illness: HISTORY OF PRESENT ILLNESS: This is a 68-year-old female with a past medical history significant for atrial fibrillation, hypertension, and CVA. Patient follows with Dr Chew. We have renae thomas asked to see the patient in consultation for atrial fibrillation. Patient examined at the bedside. Patient was brought to the hospital from [facility]. Patient states she was having palpitations and some chest discomfort. Patient has a longstanding history of atrial fibrillation and states her only symptom is usually fatigue. However this time she did feel her A-fib. She reports a history of a CVA in July 2024 and was hospitalized at [facility]. She reports her right leg is getting stronger but she has not noticed much improvement in her right arm. Patient remains in atrial fibrillation with a heart rate around 100 this morning. She denies chest pain or pressure. She denies shortness of breath. DIAGNOSTICS: - EKG reveals A-fib with RVR. - Chest xray negative for acute process - Laboratory data: WBC 11.56. Hemoglobin 12.6. Platelet count 319. Sodium 125. Potassium 3.6. BUN 15. Creatinine 0.61. Troponin 0.022. 0.093. - Current home cardiac medications list has not been updated at the time of this dictation - Most recent echocardiogram obtained in May 2019 revealing ejection fraction 40 to 45%, borderline LVH, mild MR, mild TR, mild pulmonary hypertensi on REVIEW OF SYSTEMS: At the time of my exam: CONSTITUTIONAL: Denies fever or chills. HEENT: Denies blurred vision, vision changes, or eye pain. Denies hemoptysis CARDIOVASCULAR: Denies chest pain. Denies orthopnea. Denies PND. Denies palpitations RESPIRATORY: Denies shortness of breath. GASTROINTESTINAL: Denies abdominal pain. Denies nausea or vomiting. HEMATOLOGIC: Denies bleeding disorders. GENITOURINARY: Denies any blood in urine. SKIN: Denies pruitis. Denies rash. PHYSICAL EXAM: VITAL SIGNS: Reviewed. GENERAL: Well-developed in no acute distress. HEENT: Head is normocephalic. Pupils are equal, round. Sclerae anicteric. Mucous membranes of the mouth are moist. Neck supple. No JVD or thyromegaly LUNGS: Respirations even and unlabored. Lungs essentially clear to auscultation bilaterally. HEART: Irregular rate and rhythm. S1 and S2 heard. ABDOMEN: Soft. Nondistended. Nontender. EXTREMITIES: Normal range of motion. No clubbing or cyanosis. Peripheral pulses intact. No lower extremity edema NEUROLOGIC: Awake and alert. Oriented x 3. ASSESSMENT: Paroxysmal atrial fibrillation Elevated troponin, likely type II [place] secondary to oxygen supply/demand mismatch History of LILI/cardioversion, 07/2019 History of CVA with residual right-sided weakness, July 2024 History of hypertension PLAN: Obtain 2D echo to assess cardiac structure and function Continue anticoagulation with Xarelto Discontinue IV Cardizem Increase metoprolol succinate to 50 mg twice a day Continue telemetry monitoring Obtain third troponin Further recommendations pending patient course Nurse practitioner note has been reviewed by physician. Signing provider agrees with the documented findings, assessment, and plan of care documented by [facility] ADMINISTRATOR as a scribe. Past Medical History Past Medical History: Atrial Fibrillation, Asthma, CVA/TIA, Hypertension, Osteoarthritis (OA) Additional Past Medical History / Comment(s): lupus, migraines, Stroke (July 2024) History of Any Multi-Drug Resistant Organisms: None Reported Past Surgical History: Cholecystectomy, Hysterectomy, Joint Replacement, Orthopedic Surgery Additional Past Surgical History / Comment(s): lt knee replaced, sinus surgery Past Anesthesia/Blood Transfusion Reactions: Previous Problems w/ Anesthesia Additional Past Anesthesia/Blood Transfusion Reaction / Comment(s): slow to wake up Past Psychological History: No Psychological Hx Reported Smoking Status: Never smoker Past Alcohol Use History: None Reported Past Drug Use History: None Reported Medications and Allergies Home Medications Medication Instructions Recorded Confirmed Type Fluticasone Propion/Salmeterol 1 inhalation PO BID 05/23/19 07/04/19 History [Fluticasone-Salmeterol 500-50] Levothyroxine Sodium [Synthroid] 175 mcg PO DAILY 05/23/19 07/04/19 History Losartan Potassium 50 mg PO HS 05/23/19 07/04/19 History Montelukast [Singulair] 10 mg PO HS 05/23/19 07/04/19 History Omeprazole [PriLOSEC] 20 mg PO AC-BRKFST #30 cap 05/25/19 07/04/19 Rx Metoprolol Succinate [Toprol XL] 50 mg PO HS 07/02/19 07/04/19 History Rivaroxaban [Xarelto] 20 mg PO W/SUPPER 07/02/19 07/04/19 History amLODIPine [Norvasc] 5 mg PO DAILY #90 tab 07/04/19 Rx Allergies Allergy/AdvReac Type Severity Reaction Status Date / Time prochlorperazine Allergy Anaphylaxis Verified 08/16/24 18:38 [From Compazine] Physical Exam Vitals: Vital Signs Temp Pulse Pulse Resp BP BP Pulse Ox 08/17/24 04:00 65 16 116/64 95 08/17/24 00:00 97.7 F 77 16 133/69 97 08/16/24 23:20 98.2 F 72 18 118/67 95 08/16/24 22:25 78 18 137/67 97 08/16/24 20:55 66 16 116/66 95 08/16/24 20:09 117 H 20 122/70 95 08/16/24 18:30 98.1 F 60 16 113/91 97 Intake and Output 08/16/24 08/17/24 08/17/24 22:59 06:59 14:59 Intake Total 566.333 Balance 566.333 Intake: Intake, IV Titration 26.333 Amount Diltiazem 125 mg In 26.333 Dextrose 5% in Water 100 ml @ 5 MG/HR 5 mls/hr IV .Q24H [facility] Rx#:[id number] Oral 540 Other: Voiding Method Toilet Weight 69.4 kg 73 kg Results 08/16/24 19:25 08/17/24 00:53 Cardiac Enzymes 08/16/24 08/16/24 08/16/24 Range/Units 19:25 19: 23:10 AST 26 (14-36) U/L Troponin I 0.022 0.093 H* (0.000-0.034) ng/mL Coagulation 08/16/24 Range/Units 19: PT 12.4 (10.0-12.5) sec APTT 31.7 H (22.0-30.0) sec CBC 08/16/24 Range/Units : WBC 11.56 H (4.50-10.00) 10*3/uL RBC 4.04 L (4.10-5.20) 10*6/uL Hgb 12.6 (12.0-15.0) g/dL Hct 35.3 L (37.2-46.3) % Plt Count 319 (140-440) 10*3/uL Comprehensive Metabolic Panel 08/16/24 08/17/24 Range/Units 19:25 00:53 Sodium 126 L 125 L (137-145) mmol/L Potassium 3.6 3.6 (3.5-5.1) mmol/L Chloride 92 L 94 L (98-107) mmol/L Carbon Dioxide 24 23 (22-30) mmol/L BUN 18 H 15 (7-17) mg/dL Creatinine 0.66 0.61 (0.52-1.04) mg/dL Glucose 101 H 98 (74-99) mg/dL Calcium 9.0 8.6 (8.4-10.2) mg/dL AST 26 (14-36) U/L ALT 16 (4-34) U/L Alkaline Phosphatase 64 (38-126) U/L Total Protein 5.8 L (6.3-8.2) g/dL Albumin 3.4 L (3.5-5.0) g/dL Current Medications Generic Name Dose Route Start Last Admin Trade Name Freq PRN Reason Stop Dose Admin Acetaminophen 650 mg 08/16/24 22:28 Acetaminophen Tab 325 Mg Tab PO Q6HR PRN Mild Pain or Fever > 100.5 Amlodipine Besylate 5 mg 08/17/24 09:00 Amlodipine 5 Mg Tab PO DAILY [facility] Budesonide/Formoterol Fumarate 2 puff 08/17/24 08:00 Symbicort 160-4.5 Mcg Inhaler INHALATION RT-BID ELY Diltiazem HCl 125 mg/ Dextrose 125 mls @ 5 mls/hr 08/16/24 20:15 08/17/24 06:34 /Water IV 5 mg/hr .Q24H ELY 5 mls/hr Titration Protocol 5 MG/HR Levothyroxine Sodium 100 mcg 08/17/24 06:00 08/17/24 06:17 Levothyroxine 100 Mcg Tab PO 100 mcg DAILY@0600 ELY Administration Levothyroxine Sodium 75 mcg 08/17/24 06:00 08/17/24 06:17 Levothyroxine 75 Mcg Tab PO 75 mcg DAILY@0600 ELY Administration Losartan Potassium 50 mg 08/17/24 21:00 Losartan 50 Mg Tab PO HS ELY Metoprolol Succinate 50 mg 08/17/24 21:00 Metoprolol Succinate (Er) 50 Mg Tab.Er.24h PO HS [facility] Montelukast Sodium 10 mg 08/17/24 21:00 Montelukast 10 Mg Tab PO HS [facility] Morphine Sulfate 4 mg 08/16/24 22:28 Morphine Sulfate 4 Mg/Ml Syringe IV Q4HR PRN Severe Pain (Scale 7 to 10) Naloxone HCl 0.2 mg 08/16/24 22:28 Naloxone 0.4 Mg/Ml 1 Ml Vial IV Q2M PRN Opioid Reversal Ondansetron HCl 4 mg 08/16/24 22:28 Ondansetron 4 Mg/2 Ml Vial IVP Q8HR PRN Nausea And Vomiting Pantoprazole Sodium 40 mg 08/17/24 07:30 08/17/24 06:17 Pantoprazole 40 Mg Tablet PO 40 mg AC-BRKFST [facility] Administration Rivaroxaban 20 mg 08/17/24 17:30 Rivaroxaban 20 Mg Tab PO W/SUPPER [facility] Protocol Intake and Output 08/16/24 08/17/24 08/17/24 22:59 06:59 14:59 Intake Total 566.333 Balance 566.333 Intake: Intake, IV Titration 26.333 Amount Diltiazem 125 mg In 26.333 Dextrose 5% in Water 100 ml @ 5 MG/HR 5 mls/hr IV .Q24H [facility] Rx#:[id number] Oral 540 Other: Voiding Method Toilet Weight 69.4 kg 73 kg 08/16/24 19:25 08/17/24 00:53
--- NOTE | 2024-08-17 13:37 | P.HPIM ---
History of Present Illness H&P Date: 08/17/24 History of present illness; patientis a 68-year-old lady with past medical history significant for atrial fibrillation on Xarelto who presented to the ER because of chest discomfort and palpitation. Patient stated that she was all right couple of days back when she started noticing palpitations, patient also complaining of chest discomfort which is central location, nonradiating, no aggravating or relieving factors associated with chest pain. Patient denies any shortness of breath there is no complaint of orthopnea or PND. There is no complaint of swelling of lower extremities patient denies any fever or chills. Denies any nausea, vomiting abdominal pain. Patient denies any complaint of dizziness. There is no complaint of headache. Because of the symptoms patient presented the ER Initial lab work done in the ER showed WBC 9.56, hemoglobin 12.6, platelet count 319, sodium 126, potassium 3.6, BUN 18, creatinine 0.66, glucose 101, troponin 0.022 EKG done in the ER showed heart rate of 105, irregular, no ST segment elevation or depression seen, no T-wave inversions seen. Chest x-ray done in the ER no acute cardiopulmonary disease/process Patient admitted to internal medicine service REVIEW OF SYSTEMS: CONSTITUTIONAL: No fever, no malaise, no fatigue. HEENT: No recent visual problems or hearing problems. Denied any sore throat. CARDIOVASCULAR: As mentioned above. PULMONARY: As mentioned above GASTROINTESTINAL: No diarrhea, no nausea, no vomiting, no abdominal pain. NEUROLOGICAL: No headaches, no weakness, no numbness. HEMATOLOGICAL: Denies any bleeding or petechiae. GENITOURINARY: Denies any burning micturition, frequency, or urgency. MUSCULOSKELETAL/RHEUMATOLOGICAL: Denies any joint pain, swelling, or any muscle pain. ENDOCRINE: Denies any polyuria or polydipsia. The rest of the 14-point review of systems is negative. PHYSICAL EXAMINATION: GENERAL: The patient is alert and oriented x3, not in any acute distress. Well developed, well nourished. HEENT: Pupils are round and equally reacting to light. EOMI. No scleral icterus. No conjunctival pallor. Normocephalic, atraumatic. No pharyngeal erythema. No thyromegaly. CARDIOVASCULAR: S1 and S2 present. No murmurs, rubs, or gallops. PULMONARY: Chest is clear to auscultation, no wheezing or crackles. ABDOMEN: Soft, nontender, nondistended, normoactive bowel sounds. No palpable organomegaly. MUSCULOSKELETAL: No joint swelling or deformity. EXTREMITIES: No cyanosis, clubbing, or pedal edema. NEUROLOGICAL: Has right-sided weakness from prior stroke, SKIN: No rashes. Assessment and plan Paroxysmal atrial fibrillation with RVR Elevated troponin Hyponatremia History of LILI/cardioversion, 07/2019 History of CVA with residual right-sided weakness, July 2024 History of hypertension History of hypothyroidism Monitor vital signs Monitor CBC Monitor CMP Continue telemetry monitoring Serial troponin Ordered 2D echo Started Cardizem drip Continue Xarelto Resume Synthroid Consult cardiology Labs and medication were reviewed.. Continue same treatment. Continue with symptomatic treatment. Resume home medication. Monitor labs and vitals. DVT and GI prophylaxis. Further recommendations as per clinical course of the patient Dictation was produced using [employer] dictation software. please excuse any grammatical, word or spelling errors. Past Medical History Past Medical History: Atrial Fibrillation, Asthma, CVA/TIA, Hypertension, Osteoarthritis (OA) Additional Past Medical History / Comment(s): lupus, migraines, Stroke (July 2024) History of Any Multi-Drug Resistant Organisms: None Reported Past Surgical History: Cholecystectomy, Hysterectomy, Joint Replacement, Orthopedic Surgery Additional Past Surgical History / Comment(s): lt knee replaced, sinus surgery Past Anesthesia/Blood Transfusion Reactions: Previous Problems w/ Anesthesia Additional Past Anesthesia/Blood Transfusion Reaction / Comment(s): slow to wake up Past Psychological History: No Psychological Hx Reported Smoking Status: Never smoker Past Alcohol Use History: None Reported Past Drug Use History: None Reported Medications and Allergies Home Medications Medication Instructions Recorded Confirmed Type Losartan Potassium 100 mg PO DAILY@0900 05/23/19 08/17/24 History Montelukast [Singulair] 10 mg PO HS@2100 05/23/19 08/17/24 History Rivaroxaban [Xarelto] 20 mg PO HS@2100 07/02/19 08/17/24 History Acetaminophen [Tylenol] 650 mg PO Q6H PRN 08/17/24 08/17/24 History Albuterol Inhaler [Ventolin Hfa 1 puff INHALATION RT-Q6H PRN 08/17/24 08/17/24 History Inhaler] Albuterol Nebulized [Ventolin 2.5 mg INHALATION RT-Q6H PRN 08/17/24 08/17/24 History Nebulized] Atorvastatin [Lipitor] 80 mg PO HS@209908/17/24 08/17/24 History Bismuth Subsalicylate 524 mg PO Q4H PRN 08/17/24 08/17/24 History [Pepto-Bismol] Cetirizine HCl [Zyrtec] 10 mg PO HS@209908/17/24 08/17/24 History Cholecalciferol [Vitamin D3 (25 25 mcg PO DAILY@89908/17/24 08/17/24 History Mcg = 1000 Iu)] Dicyclomine [Bentyl] 10 mg PO TID@06,,08/17/24 08/17/24 History Fluticasone Propion/Salmeterol 1 puff INHALATION RT-BID@899,209908/17/24 08/17/24 History [Advair 250-50 Diskus] Lactulose 10 - 20 gm PO BID@0900,209908/17/24 08/17/24 History Levothyroxine Sodium [Synthroid] 150 mcg PO DAILY@0608/17/24 08/17/24 History Melatonin 5 mg PO HS PRN 08/17/24 08/17/24 History Melatonin 10 mg PO HS PRN 08/17/24 08/17/24 History NIFEdipine XL [Procardia XL] 60 mg PO DAILY@0908/17/24 08/17/24 History Sennosides/Docusate Sodium [Senna 1 cap PO BID@0900,209908/17/24 08/17/24 History Plus 8.6-50 mg Softgel] Simethicone Chew [Mylicon Chew] 80 mg PO QID PRN 08/17/24 08/17/24 History carvediloL [Coreg] 25 mg PO BID@0900,209908/17/24 08/17/24 History hydrALAZINE HCL [Apresoline] 50 mg PO QID@00,06,12,18 08/17/24 08/17/24 History polyethylene glycoL 3350 [Miralax] 17 gm PO BID@0900,209908/17/24 08/17/24 History Allergies Allergy/AdvReac Type Severity Reaction Status Date / Time prochlorperazine Allergy Anaphylaxis Verified 08/17/24 12:14 [From Compazine] Physical Exam Vitals: Vital Signs Temp Pulse Pulse Resp BP BP Pulse Ox 08/17/24 08:00 97.4 F L 61 16 93/59 95 08/17/24 04:00 65 16 116/64 95 08/17/24 00:00 97.7 F 77 16 133/69 97 08/16/24 23:20 98.2 F 72 18 118/67 95 08/16/24 22:25 78 18 137/67 97 08/16/24 20:55 66 16 116/66 95 08/16/24 20:09 117 H 20 122/70 95 08/16/24 18:30 98.1 F 60 16 113/91 97 Intake and Output 08/16/24 08/17/24 08/17/24 22:59 06:59 14:59 Intake Total 566.333 Balance 566.333 Intake: Intake, IV Titration 26.333 Amount Diltiazem 125 mg In 26.333 Dextrose 5% in Water 100 ml @ 5 MG/HR 5 mls/hr IV .Q24H [facility] Rx#:[id number] Oral 540 Other: Voiding Method Toilet # Voids 1 # Bowel Movements 1 Weight 69.4 kg 73 kg Results CBC & Chem 7: 08/16/24 19:25 08/17/24 00:53 Labs: Abnormal Lab Results - Last 24 Hours (Table) 08/16/24 08/16/24 08/16/24 Range/Units 19:25 19: 19: WBC 11.56 H (4.50-10.00) 10*3/uL RBC 4.04 L (4.10-5.20) 10*6/uL Hct 35.3 L (37.2-46.3) % Neutrophils # 8.59 H (1.80-7.70) 10*3/uL Eosinophils # 0.49 H (0.04-0.35) 10*3/uL Basophils # 0.13 H (0.00-0.10) 10*3/uL APTT 31.7 H (22.0-30.0) sec Sodium 126 L (137-145) mmol/L Chloride 92 L (98-107) mmol/L BUN 18 H (7-17) mg/dL Glucose 101 H (74-99) mg/dL Troponin I (0.000-0.034) ng/mL Total Protein 5.8 L (6.3-8.2) g/dL Albumin 3.4 L (3.5-5.0) g/dL 08/16/24 08/17/24 Range/Units 23:10 00:53 WBC (4.50-10.00) 10*3/uL RBC (4.10-5.20) 10*6/uL Hct (37.2-46.3) % Neutrophils # (1.80-7.70) 10*3/uL Eosinophils # (0.04-0.35) 10*3/uL Basophils # (0.00-0.10) 10*3/uL APTT (22.0-30.0) sec Sodium 125 L (137-145) mmol/L Chloride 94 L (98-107) mmol/L BUN (7-17) mg/dL Glucose (74-99) mg/dL Troponin I 0.093 H* (0.000-0.034) ng/mL Total Protein (6.3-8.2) g/dL Albumin (3.5-5.0) g/dL Thrombosis Risk Factor Assmnt - Choose All That Apply Any of the Below Risk Factors Present?: No Other Risk Factors: Yes Each Risk Factor Represents 2 Points: Age 61-74 years Other congenital or acquired thrombophilia - If yes, enter type in comment: No Thrombosis Risk Factor Assessment Total Risk Factor Score: 2 Thrombosis Risk Factor Assessment Level: Low Risk
[2024-08-17] MEDS: ACETAMINOPHEN TAB 325 MG TAB PO PRN (14:14)
[2024-08-17] MEDS: RIVAROXABAN 20 MG TAB PO SCH (16:20)
[2024-08-17] MEDS: LOSARTAN 50 MG TAB PO SCH (20:08)
[2024-08-17] MEDS: MONTELUKAST 10 MG TAB PO SCH (20:08)
[2024-08-17] MEDS ORDERED: METOPROLOL SUCCINATE (ER) 50 MG TAB.ER.24H PO SCH (21:00)
[2024-08-17] MEDS: MELATONIN 5 MG TABLET PO SCH (23:44)
[2024-08-18] MEDS ORDERED: NON FORMULARY DRUG (Carvedilol [Coreg] 25 MG Tablet) PO SCH (09:00)
[2024-08-18] MEDS ORDERED: ALBUTEROL NEBULIZED 2.5 MG/3 ML INHALATION PRN (09:05)
[2024-08-18] MEDS ORDERED: ACETAMINOPHEN TAB 325 MG TAB PO PRN (09:05)
[2024-08-18] MEDS ORDERED: BISMUTH SUBSALICYLATE 4,192 MG/240 ML BOTTLE PO PRN (09:05)
[2024-08-18] MEDS ORDERED: SIMETHICONE 80 MG CHEWABLE PO PRN (09:05)
[2024-08-18] MEDS ORDERED: MELATONIN 5 MG TABLET PO PRN (09:05)
[2024-08-18] MEDS ORDERED: MELATONIN 10 MG PO PRN (09:05)
[2024-08-18] MEDS: LOSARTAN 50 MG TAB PO SCH (10:42)
--- NOTE | 2024-08-18 11:48 | CA ---
Transthoracic Echo Report Name: Cheryle Johnson Age: 68 Gender: F : 1955 Exam Date: 08/18/2024 09:08 Exam Location: [facility] Ht (in): 67 Wt (lb): 160 Ordering Physician: Azra Mane Attending/Referring Phys: [id number], Antonietta Brush Loader And Handle Attacher Mariya Wolf RDCS Procedure CPT: Indications: LV function, chest pain, A-fib Cardiac Hx: Technical Quality: Good Contrast 1: N/A Total Dose (mL): Contrast 2: Total Dose (mL): MEASUREMENTS (Male / Female) Normal Values 2D ECHO LV Diastolic Diameter PLAX 4.1 cm 4.2 - 5.9 / 3.9 - 5.3 cm LV Systolic Diameter PLAX 2.8 cm IVS Diastolic Thickness 1.2 cm 0.6 - 1.0 / 0.6 - 0.9 cm LVPW Diastolic Thickness 1.3 cm 0.6 - 1.0 / 0.6 - 0.9 cm LV Relative Wall Thickness 0.6 RV Internal Dim ED PLAX 2.7 cm LA Systolic Diameter LX 3.4 cm 3.0 - 4.0 / 2.7 - 3.8 cm LV Diastolic Volume MOD BP 47.8 cm??? 67 - 155 / 56 - 104 cm??? LV Systolic Volume MOD BP 20.4 cm??? 22 - 58 / 19 - 49 cm??? LV Ejection Fraction MOD BP 57.3 % >= 55 % LV Cardiac Index MOD BP 839.1 cm???/min???m??? LV Diastolic Volume MOD 4C 55.7 cm??? LV Systolic Volume MOD 4C 23.8 cm??? LV Ejection Fraction MOD 4C 57.2 % LV Cardiac Index MOD 4C 974.1 cm???/min???m??? LV Diastolic Length 4C 6.3 cm LV Systolic Length 4C 5.6 cm LV Diastolic Volume MOD 2C 39.9 cm??? LV Systolic Volume MOD 2C 18.3 cm??? LV Ejection Fraction MOD 2C 54.2 % LV Cardiac Index MOD 2C 662.0 cm???/min???m??? LV Diastolic Length 2C 6.2 cm LV Systolic Length 2C 5.7 cm M-MODE Aortic Root Diameter MM 3.4 cm LA Systolic Diameter MM 3.6 cm LA Ao Ratio MM 1.1 AV Cusp Separation MM 2.0 cm DOPPLER AI Peak Velocity 426.5 cm/s AI Peak Gradient 72.8 mmHg AI Pressure Half Time 876.8 ms Mitral E Point Velocity 87.5 cm/s Mitral A Point Velocity 61.0 cm/s Mitral E to A Ratio 1.4 MV Deceleration Time 202.2 ms MV E' Velocity 6.6 cm/s Mitral E to MV E' Ratio 13.2 TR Peak Velocity 228.3 cm/s TR Peak Gradient 20.8 mmHg FINDINGS Left Ventricle Left ventricular ejection fraction is estimated at 55-60 %. Mildly increased septal wall thickness. Mildly increased posterior wall thickness. Normal Left ventricular size, wall thickness, systolic function with no obvious regional wall motion abnormalities. Right Ventricle Normal right ventricular size and function. Right ventricular systolic pressure within normal limits. Right Atrium Normal right atrial size. Left Atrium Mild left atrial dilatation. Mitral Valve Structurally normal mitral valve. Mild to moderate mitral regurgitation. No mitral stenosis. Aortic Valve Trileaflet aortic valve. [id number] aortic regurgitation. No aortic stenosis. Tricuspid Valve Tricuspid valve not well visualized. Trace to mild tricuspid regurgitation. No tricuspid stenosis. Pulmonic Valve Structurally normal pulmonic valve. No pulmonic stenosis. Moderate pulmonic regurgitation. Pericardium No pericardial or pleural effusion. Aorta Normal size aortic root and proximal ascending aorta. CONCLUSIONS Normal LV size and systolic function. Mild to moderate mitral and aortic regurgitation. Mild tricuspid regurgitation no pericardial effusion. No pulmonary Previewed by: Dr. Yue Bauer MD (Electronically Signed) Final Date: 18 Aug 2024 11:47
[2024-08-18 12:26] LABS: African American GFR (CKD) >90 (>60 ml/min/1.73 sqM); Anion Gap 6 mmol/L; Blood Urea Nitrogen 17 mg/dL (7-17); Calcium 8.7 mg/dL (8.4-10.2); Carbon Dioxide 25 mmol/L (22-30); Chloride 93 mmol/L (98-107); Glucose 106 mg/dL (74-99); Non-African American GFR(CKD) >90 (>60 ml/min/1.73 sqM); Sodium 124 mmol/L (137-145)
[2024-08-18] MEDS: hydrALAZINE HCL 50 MG TAB PO SCH (12:29)
--- NOTE | 2024-08-18 13:09 | P.PN ---
Subjective Progress Note Date: 08/18/24 HISTORY OF PRESENT ILLNESS: This is a 68-year-old female with a past medical history significant for atrial fibrillation, hypertension, and CVA. Patient follows with Dr Chew. We have been asked to see the patient in consultation for atrial fibrillation. Patient examined at the bedside. Patient was brought to the hospital from [facility]. Patient states she was having palpitations and some chest discomfort. Patient has a longstanding history of atrial fibrillation and states her only symptom is usually fatigue. However this time she did feel her A-fib. She reports a history of a CVA in July 2024 and was hospitalized at [facility]. She reports her right leg is getting stronger but she has not noticed much improvement in her right arm. Patient remains in atrial fibrillation with a heart rate around 100 this morning. She denies chest pain or pressure. She denies shortness of breath. DIAGNOSTICS: - EKG reveals A-fib with RVR. - Chest xray negative for acute process - Laboratory data: WBC 11.56. Hemoglobin 12.6. Platelet count 319. Sodium 125. Potassium 3.6. BUN 15. Creatinine 0.61. Troponin 0.022. 0.093. - Current home cardiac medications list has not been updated at the time of this dictation - Most recent echocardiogram obtained in May 2019 revealing ejection fraction 40 to 45%, borderline LVH, mild MR, mild TR, mild pulmonary hypertension 5/5 Patient seen and examined. Patient had additional troponin which came back at 0.118. When asked about her symptoms of brought her into the hospital, patient states that she had chest pain like she was having a heart attack. Her last cardiac catheterization was in 2001. Echocardiogram is pending. PHYSICAL EXAM: VITAL SIGNS: Reviewed. GENERAL: Well-developed in no acute distress. HEENT: Head is normocephalic. Pupils are equal, round. Sclerae anicteric. Mucous membranes of the mouth are moist. Neck supple. No JVD or thyromegaly LUNGS: Respirations even and unlabored. Lungs essentially clear to auscultation bilaterally. HEART: Irregular rate and rhythm. S1 and S2 heard. ABDOMEN: Soft. Nondistended. Nontender. EXTREMITIES: Normal range of motion. No clubbing or cyanosis. Peripheral pulses intact. No lower extremity edema NEUROLOGIC: Awake and alert. Oriented x 3. ASSESSMENT: Paroxysmal atrial fibrillation Chest pain with elevated troponins History of LILI/cardioversion, 07/2019 History of CVA with residual right-sided weakness, July 2024 History of hypertension PLAN: Obtain 2D echo to assess cardiac structure and function Continue anticoagulation with Xarelto Resume patient's home cardiac medications including Coreg 25 mg twice daily, hydralazine 50 mg 4 times daily, losartan 100 mg daily, Procardia 60 mg daily Discontinue amlodipine Continue telemetry monitoring Patient will decide whether she wants to move forward with cardiac catheterization with Dr. Paiz or follow-up with her primary senior linux systems administrator If patient wants to undergo cardiac catheterization in this hospitalization, Xarelto will need to be held and the procedure will be scheduled for Sunday Further recommendations pending patient course Nurse practitioner note has been reviewed by physician. Signing provider agrees with the documented findings, assessment, and plan of care documented by GROCERY SACKER as a scribe. Objective - Vital Signs Vital signs: Vital Signs Temp 97.6 F 08/18/24 04:54 Pulse 62 08/18/24 08:21 Resp 19 08/18/24 08:17 BP 156/73 08/18/24 08:17 Pulse Ox 94 L 08/18/24 08:17 FiO2 Intake & Output 08/17/24 08/18/24 08/18/24 18:59 06:59 18:59 Intake Total 240 Output Total 400 Balance -400 240 Weight 74 kg Intake: Oral 240 Output: Urine 400 Other: Voiding Method Toilet Toilet External Catheter # Voids 1 1 # Bowel Movements 1 1 - Labs CBC & Chem 7: 08/16/24 19:25 08/18/24 11:55 Labs: Abnormal Lab Results - Last 24 Hours (Table) 08/17/24 Range/Units 09:44 Troponin I 0.118 H* (0.000-0.034) ng/mL
[2024-08-18] MEDS ORDERED: NITROGLYCERIN SL TABS 0.4 MG TAB SUBLINGUAL PRN (14:10)
[2024-08-18] MEDS ORDERED: ALPRAZolam 0.5 MG TAB PO PRN (14:10)
[2024-08-18] MEDS ORDERED: ALPRAZolam 0.25 MG TAB PO PRN (14:10)
[2024-08-18] MEDS: DICYCLOMINE 10 MG CAP PO SCH (15:00)
[2024-08-18] MEDS: ALBUTEROL NEBULIZED 2.5 MG/3 ML INHALATION PRN (17:15)
[2024-08-18] MEDS: carvediloL 12.5 MG TAB PO SCH (17:15)
[2024-08-18] MEDS: ATORVASTATIN 80 MG TAB PO SCH (19:50)
[2024-08-18] MEDS: polyethylene glycoL 3350 17 GM POWD.PACK PO SCH (19:50)
[2024-08-18] MEDS: SENNOSIDES-DOCUSATE SODIUM 1 EACH TAB PO SCH (19:50)
[2024-08-18] MEDS: LORATADINE 10 MG TAB PO SCH (19:50)
[2024-08-18] MEDS ORDERED: SYMBICORT 80-4.5 MCG INHALER INHALATION SCH (21:00)
[2024-08-19] MEDS: LEVOTHYROXINE 75 MCG TAB PO SCH (06:08)
[2024-08-19 06:25] LABS: Basophils # (A) 0.06 10*3/uL (0.00-0.10); Basophils % (A) 0.9 %; Eosinophils # (A) 0.36 10*3/uL (0.04-0.35); Eosinophils % (A) 5.6 %; HCT 31.8 % (37.2-46.3); Lymphocytes # (A) 1.22 10*3/uL (0.90-5.00); Lymphocytes % (A) 19.1 %; MCH 31.1 pg (27.0-32.0); MCHC 34.6 g/dL (32.0-37.0); MCV 89.8 fL (80.0-97.0); Mean Platelet Volume 9.9 fL (9.5-12.2); Monocytes # (A) 0.63 10*3/uL (0.20-1.00); Monocytes % (A) 9.9 %; Neutrophils # (A) 4.11 10*3/uL (1.80-7.70); Neutrophils % (A) 64.3 %; Platelet Count 261 10*3/uL (140-440); RBC 3.54 10*6/uL (4.10-5.20); RDW 12.4 % (11.5-14.5); WBC 6.39 10*3/uL (4.50-10.00)
[2024-08-19 06:41] LABS: African American GFR (CKD) >90 (>60 ml/min/1.73 sqM); Anion Gap 5 mmol/L; Blood Urea Nitrogen 14 mg/dL (7-17); Calcium 9.1 mg/dL (8.4-10.2); Carbon Dioxide 29 mmol/L (22-30); Chloride 95 mmol/L (98-107); Glucose 92 mg/dL (74-99); Non-African American GFR(CKD) >90 (>60 ml/min/1.73 sqM); Potassium 3.5 mmol/L (3.5-5.1); Sodium 129 mmol/L (137-145)
[2024-08-19] MEDS ORDERED: HEPARIN SODIUM,PORCINE (1 ML) 2,500 UNIT in SODIUM CHLORIDE 0.9% 250 ML IRRIGATION PRN (07:00)
[2024-08-19] MEDS ORDERED: HEPARIN SODIUM,PORCINE 10,000 UNIT in SODIUM CHLORIDE 0.9% 1,000 ML IRRIGATION PRN (07:00)
[2024-08-19] MEDS: CHOLECALCIFEROL 25 MCG (1000 IU) TABLET PO SCH (08:28)
--- NOTE | 2024-08-19 09:46 | P.NPCON ---
History of Present Illness - Reason for Consult hyponatremia - History of Present Illness Reason for consultation: Hyponatremia History of present illness: Patient is a 68-year-old female seen in new consultation for hyponatremia. Patient came to the hospital on August 16, 2024 due to chest pain which began that evening. She was noted to be in A-fib and was put on Cardizem drip. Now on oral meds. She denies chest pain or shortness of breath. Denies vomiting or diarrhea. Oral intake is fair. She admits to drinking over 150 ounces of water daily. She is having loose bowel movements which she attributes to taking laxative. She denies history of diabetes or coronary artery disease. She does have history of stroke. Also states that she was diagnosed with lupus in the . Echocardiogram showed mild to moderate aortic and mitral regurgitation. Denies use of nonsteroidals. No gross hematuria or dysuria. No fever or chills. Vital signs are stable. General: No acute distress. HEENT: Head exam is unremarkable. Kartha LUNGS: No audible rhonchi or wheezes. HEART: Rate and Rhythm are regular. Kartha ABDOMEN: Nontender. EXTREMITITES: No edema. Past Medical History Past Medical History: Atrial Fibrillation, Asthma, CVA/TIA, Hypertension, Osteoarthritis (OA) Additional Past Medical History / Comment(s): lupus, migraines, Stroke (July 2024) History of Any Multi-Drug Resistant Organisms: None Reported Past Surgical History: Cholecystectomy, Hysterectomy, Joint Replacement, Orthopedic Surgery Additional Past Surgical History / Comment(s): lt knee replaced, sinus surgery Past Anesthesia/Blood Transfusion Reactions: Previous Problems w/ Anesthesia Additional Past Anesthesia/Blood Transfusion Reaction / Comment(s): slow to wake up Past Psychological History: No Psychological Hx Reported Smoking Status: Never smoker Past Alcohol Use History: None Reported Past Drug Use History: None Reported Medications and Allergies Home Medications Medication Instructions Recorded Confirmed Type Losartan Potassium 100 mg PO DAILY@0900 05/23/19 08/17/24 History Montelukast [Singulair] 10 mg PO HS@2100 05/23/19 08/17/24 History Rivaroxaban [Xarelto] 20 mg PO HS@2100 07/02/19 08/17/24 History Acetaminophen [Tylenol] 650 mg PO Q6H PRN 08/17/24 08/17/24 History Albuterol Inhaler [Ventolin Hfa 1 puff INHALATION RT-Q6H PRN 08/17/24 08/17/24 History Inhaler] Albuterol Nebulized [Ventolin 2.5 mg INHALATION RT-Q6H PRN 08/17/24 08/17/24 H istory Nebulized] Atorvastatin [Lipitor] 80 mg PO HS@209908/17/24 08/17/24 History Bismuth Subsalicylate 524 mg PO Q4H PRN 08/17/24 08/17/24 History [Pepto-Bismol] Cetirizine HCl [Zyrtec] 10 mg PO HS@209908/17/24 08/17/24 History Cholecalciferol [Vitamin D3 (25 25 mcg PO DAILY@89908/17/24 08/17/24 History Mcg = 1000 Iu)] Dicyclomine [Bentyl] 10 mg PO TID@06,,08/17/24 08/17/24 History Fluticasone Propion/Salmeterol 1 puff INHALATION RT-BID@0900,209908/17/24 History [Advair 250-50 Diskus] Lactulose 10 - 20 gm PO BID@0900,209908/17/24 08/17/24 History Levothyroxine Sodium [Synthroid] 150 mcg PO DAILY@0608/17/24 08/17/24 History Melatonin 5 mg PO HS PRN 08/17/24 08/17/24 History Melatonin 10 mg PO HS PRN 08/17/24 08/17/24 History NIFEdipine XL [Procardia XL] 60 mg PO DAILY@0908/17/24 08/17/24 History Sennosides/Docusate Sodium [Senna 1 cap PO BID@0900,209908/17/24 08/17/24 History Plus 8.6-50 mg Softgel] Simethicone Chew [Mylicon Chew] 80 mg PO QID PRN 08/17/24 08/17/24 History carvediloL [Coreg] 25 mg PO BID@0900,209908/17/24 08/17/24 History hydrALAZINE HCL [Apresoline] 50 mg PO QID@00,06,12,18 08/17/24 08/17/24 History polyethylene glycoL 3350 [Miralax] 17 gm PO BID@0900,2100 08/17/24 08/17/24 His tory Allergies Allergy/AdvReac Type Severity Reaction Status Date / Time prochlorperazine Allergy Anaphylaxis Verified 08/17/24 12:14 [From Compazine] Physical Exam Vitals: Vital Signs Temp Pulse Pulse Resp BP Pulse Ox 08/19/24 08:49 56 L 08/19/24 08:36 56 L 08/19/24 08:20 56 L 18 08/19/24 08:19 97.8 F 56 L 18 136/70 96 08/19/24 04:47 54 L 08/19/24 04:30 53 L 08/19/24 03:17 98.1 F 52 L 18 127/74 95 08/19/24 02:00 18 08/19/24 00:00 50 L 18 103/64 95 08/18/24 20:00 97.9 F 55 L 18 116/65 96 08/18/24 17:25 64 08/18/24 17:17 60 08/18/24 17:08 98.0 F 55 L 18 155/76 98 08/18/24 14:00 60 18 08/18/24 12:27 60 18 119/87 96 Intake and Output 08/18/24 08/19/24 08/19/24 22:59 06:59 14:59 Intake Total 120 Output Total 2810 147 9413 Balance -880 -600 -1000 Intake: Oral 120 Output: Urine 2532 389 7914 Other: Voiding Method Toilet Toilet Toilet External Catheter External Catheter External Catheter # Voids 1 Weight 74 kg Results - Lab Results Most recent lab results Calcium 9.1 mg/dL (8.4-10.2) 08/19/24 05:50 Magnesium 1.8 mg/dL (1.6-2.3) 08/16/24 19:25 08/19/24 05:50 08/19/24 05:50 Assessment and Plan Plan: Assessment: 1. Hyponatremia, euvolemic. Due to excessive fluid intake. Sodium level improved to 129. TSH normal. 2. A-fib with RVR status post Cardizem drip. Now on oral meds. 3. Benign hypertension. Stable. 4. History of CVA. Plan: Encouraged oral intake. Add 1200 cc fluid restriction. Continue to monitor. Cardiac cath tomorrow. Thank you for the consultation. I will continue to follow the patient with you during her hospital stay.
[2024-08-19] MEDS: POTASSIUM CHLORIDE ER 20 MEQ TAB.ER PO STA (11:43)
--- NOTE | 2024-08-19 13:02 | P.PN ---
Subjective Progress Note Date: 08/19/24 HISTORY OF PRESENT ILLNESS: This is a 68-year-old female with a past medical history significant for atrial fibrillation, hypertension, and CVA. Patient follows with Dr Chew. We have been asked to see the patient in consultation for atrial fibrillation. Patient examined at the bedside. Patient was brought to the hospital from [facility]. Patient states she was having palpitations and some chest discomfort. Patient has a longstanding history of atrial fibrillation and states her only symptom is usually fatigue. However this time she did feel her A-fib. She reports a history of a CVA in July 2024 and was hospitalized at [facility]. She reports her right leg is getting stronger but she has not noticed much improvement in her right arm. Patient remains in atrial fibrillation with a heart rate around 100 this morning. She denies chest pain or pressure. She denies shortness of breath. DIAGNOSTICS: - EKG reveals A-fib with RVR. - Chest xray negative for acute process - Laboratory data: WBC 11.56. Hemoglobin 12.6. Platelet count 319. Sodium 125. Potassium 3.6. BUN 15. Creatinine 0.61. Troponin 0.022. 0.093. - Current home cardiac medications list has not been updated at the time of this dictation - Most recent echocardiogram obtained in May 2019 revealing ejection fraction 40 to 45%, borderline LVH, mild MR, mild TR, mild pulmonary hypertension 08/18 Patient seen and examined. Patient had additional troponin which came back at 0.118. When asked about her symptoms of brought her into the hospital, patient states that she had chest pain like she was having a heart attack. Her last cardiac catheterization was in 2001. Echocardiogram is pending. 08/19 Patient has no chest pain at this time. She is scheduled for left heart catheterization on Sunday morning with Dr. Paiz. Her Xarelto was placed on hold as of yesterday. Blood pressure 129/72, heart rate 61, pulse ox 95% on room air. Repeat blood work reveals creatinine 0.64, hemoglobin 11. TSH 3.31. Echocardiogram reveals normal LV size and systolic function. Mild to moderate mitral and aortic regurgitation. Mild tricuspid regurgitation. No pericardial effusion. PHYSICAL EXAM: VITAL SIGNS: Reviewed. GENERAL: Well-developed in no acute distress. HEENT: Head is normocephalic. Pupils are equal, round. Sclerae anicteric. Mucous membranes of the mouth are moist. Neck supple. No JVD or thyromegaly LUNGS: Respirations even and unlabored. Lungs essentially clear to auscultation bilaterally. HEART: Irregular rate and rhythm. S1 and S2 heard. ABDOMEN: Soft. Nondistended. Nontender. EXTREMITIES: Normal range of motion. No clubbing or cyanosis. Peripheral pulses intact. No lower extremity edema NEUROLOGIC: Awake and alert. Oriented x 3. ASSESSMENT: Paroxysmal atrial fibrillation Chest pain with elevated troponins History of LILI/cardioversion, 07/2019 History of CVA with residual right-sided weakness, July 2024 History of hypertension PLAN: Hold Xarelto Continue patient's home cardiac medications including Coreg 25 mg twice daily, hydralazine 50 mg 4 times daily, losartan 100 mg daily, Procardia 60 mg daily Discontinue amlodipine Patient will be scheduled for cardiac catheterization with Dr. Paiz on Sunday morning Further recommendations pending patient course Nurse practitioner note has been reviewed by physician. Signing provider agrees with the documented findings, assessment, and plan of care documented by MAINTENANCE OF WAY CLERK as a scribe. Objective - Vital Signs Vital signs: Vital Signs Temp 97.8 F 08/19/24 08:19 Pulse 56 L 08/19/24 08:49 Resp 18 08/19/24 08:20 BP 136/70 08/19/24 08:19 Pulse Ox 96 08/19/24 08:19 FiO2 Intake & Output 08/18/24 08/19/24 08/19/24 18:59 06:59 18:59 Intake Total 600 Output Total 1100 1100 1000 Balance -500 -1100 -1000 Weight 74 kg Intake: Oral 600 Output: Urine 1100 1100 1000 Other: Voiding Method Toilet Toilet Toilet External Catheter External Catheter External Catheter # Voids 1 # Bowel Movements 1 - Labs CBC & Chem 7: 08/19/24 05:50 08/19/24 05:50 Labs: Abnormal Lab Results - Last 24 Hours (Table) 08/18/24 08/19/24 08/19/24 Range/Units 11:55 05:50 05:50 RBC 3.54 L (4.10-5.20) 10*6/uL Hgb 11.0 L (12.0-15.0) g/dL Hct 31.8 L (37.2-46.3) % Eosinophils # 0.36 H (0.04-0.35) 10*3/uL Sodium 124 L 129 L (137-145) mmol/L Chloride 93 L 95 L (98-107) mmol/L Glucose 106 H (74-99) mg/dL
[2024-08-20] MEDS: ASPIRIN 325 MG TAB PO ONE (06:29)
[2024-08-20] MEDS: ATORVASTATIN 80 MG TAB PO ONE (06:29)
[2024-08-20 07:21] LABS: African American GFR (CKD) >90 (>60 ml/min/1.73 sqM); Anion Gap 8 mmol/L; Blood Urea Nitrogen 17 mg/dL (7-17); Calcium 9.3 mg/dL (8.4-10.2); Carbon Dioxide 24 mmol/L (22-30); Chloride 97 mmol/L (98-107); Glucose 97 mg/dL (74-99); Magnesium 1.7 mg/dL (1.6-2.3); Non-African American GFR(CKD) >90 (>60 ml/min/1.73 sqM); Sodium 129 mmol/L (137-145)
--- NOTE | 2024-08-20 09:41 | P.PN ---
Subjective Patient is seen in follow-up for hyponatremia. Sodium level stable at 129. Denies chest pain or shortness of breath. Scheduled for cardiac catheterization today. Vital signs are stable. General: No acute distress. HEENT: Head exam is unremarkable. LUNGS: No audible rhonchi or wheezes. HEART: Rate and Rhythm are regular. ABDOMEN: Nontender. EXTREMITITES: No edema. Objective - Vital Signs Vital signs: Vital Signs Temp 97.9 F 08/20/24 04:00 Pulse 66 08/20/24 07:58 Resp 18 08/20/24 04:00 BP 147/86 08/20/24 04:00 Pulse Ox 96 08/20/24 04:00 FiO2 Intake & Output 08/19/24 08/20/24 08/20/24 18:59 06:59 18:59 Intake Total 1200 Output Total 1900 Balance -700 Weight 68.7 kg Intake: Oral 1200 Output: Urine 1900 Other: Voiding Method Toilet Toilet External Catheter External Catheter # Voids 1 # Bowel Movements 1 - Labs CBC & Chem 7: 08/19/24 05:50 08/20/24 06:46 Labs: Abnormal Lab Results - Last 24 Hours (Table) 08/20/24 Range/Units 06:46 Sodium 129 L (137-145) mmol/L Chloride 97 L (98-107) mmol/L Assessment and Plan Plan: Assessment: 1. Hyponatremia, euvolemic. Due to excessive fluid intake. Sodium level stable at 129. TSH normal. 2. A-fib with RVR status post Cardizem drip. Now on oral meds. 3. Benign hypertension. Stable. 4. History of CVA. Plan: Encouraged oral intake. Maintain 1200 cc fluid restriction. Continue to monitor. Cardiac cath today. Add urea.
[2024-08-20 10:47] VITALS: RESP 16
--- NOTE | 2024-08-20 11:26 | P.PN ---
Subjective Progress Note Date: 08/20/24 HISTORY OF PRESENT ILLNESS: This is a 68-year-old female with a past medical history significant for atrial fibrillation, hypertension, and CVA. Patient follows with Dr Chew. We have been asked to see the patient in consultation for atrial fibrillation. Patient examined at the bedside. Patient was brought to the hospital from [facility]. Patient states she was having palpitations and some chest discomfort. Patient has a longstanding history of atrial fibrillation and states her only symptom is usually fatigue. However this time she did feel her A-fib. She reports a history of a CVA in July 2024 and was hospitalized at [facility]. She reports her right leg is getting stronger but she has not noticed much improvement in her right arm. Patient remains in atrial fibrillation with a heart rate around 100 this morning. She denies chest pain or pressure. She denies shortness of breath. DIAGNOSTICS: - EKG reveals A-fib with RVR. - Chest xray negative for acute process - Laboratory data: WBC 11.56. Hemoglobin 12.6. Platelet count 319. Sodium 125. Potassium 3.6. BUN 15. Creatinine 0.61. Troponin 0.022. 0.093. - Current home cardiac medications list has not been updated at the time of this dictation - Most recent echocardiogram obtained in May 2019 revealing ejection fraction 40 to 45%, borderline LVH, mild MR, mild TR, mild pulmonary hypertension 08/18 Patient seen and examined. Patient had additional troponin which came back at 0.118. When asked about her symptoms of brought her into the hospital, patient states that she had chest pain like she was having a heart attack. Her last cardiac catheterization was in 2001. Echocardiogram is pending. 08/19 Patient has no chest pain at this time. She is scheduled for left heart catheterization on Sunday morning with Dr. Paiz. Her Xarelto was placed on hold as of yesterday. Blood pressure 129/72, heart rate 61, pulse ox 95% on room air. Repeat blood work reveals creatinine 0.64, hemoglobin 11. TSH 3.31. Echocardiogram reveals normal LV size and systolic function. Mild to moderate mitral and aortic regurgitation. Mild tricuspid regurgitation. No pericardial effusion. 08/20 Patient is scheduled for cardiac catheterization today which has been changed to noon with Dr. Land. Blood pressure 147/73, heart rate 50, pulse ox 93% on room air. Repeat blood work reveals sodium 129, BUN 17, creatinine 0.63, potassium 4. PHYSICAL EXAM: VITAL SIGNS: Reviewed. GENERAL: Well-developed in no acute distress. HEENT: Head is normocephalic. Pupils are equal, round. Sclerae anicteric. Mucous membranes of the mouth are moist. Neck supple. No JVD or thyromegaly LUNGS: Respirations even and unlabored. Lungs essentially clear to auscultation bilaterally. HEART: Irregular rate and rhythm. S1 and S2 heard. ABDOMEN: Soft. Nondistended. Nontender. EXTREMITIES: Normal range of motion. No clubbing or cyanosis. Peripheral pulses intact. No lower extremity edema NEUROLOGIC: Awake and alert. Oriented x 3. ASSESSMENT: Paroxysmal atrial fibrillation Chest pain with elevated troponins History of LILI/cardioversion, 07/2019 History of CVA with residual right-sided weakness, July 2024 History of hypertension PLAN: Hold Xarelto for cardiac catheterization Continue patient's home cardiac medications including Coreg 25 mg twice daily, hydralazine 50 mg 4 times daily, losartan 100 mg daily, Procardia 60 mg daily Discontinue amlodipine Patient will be scheduled for cardiac catheterization with Dr. Land today Further recommendations pending patient course Nurse practitioner note has been reviewed by physician. Signing provider agrees with the documented findings, assessment, and plan of care documented by SUPPLIER QUALITY ENGINEER as a scribe. Objective - Vital Signs Vital signs: Vital Signs Temp 97.9 F 08/20/24 04:00 Pulse 68 08/20/24 07:43 Resp 18 08/20/24 04:00 BP 147/86 08/20/24 04:00 Pulse Ox 96 08/20/24 04:00 FiO2 Intake & Output 08/19/24 08/20/24 08/20/24 18:59 06:59 18:59 Intake Total 1200 Output Total 1900 Balance -700 Weight 68.7 kg Intake: Oral 1200 Output: Urine 1900 Other: Voiding Method Toilet Toilet External Catheter External Catheter # Voids 1 # Bowel Movements 1 - Labs CBC & Chem 7: 08/19/24 05:50 08/20/24 06:46 Labs: Abnormal Lab Results - Last 24 Hours (Table) 08/20/24 Range/Units 06:46 Sodium 129 L (137-145) mmol/L Chloride 97 L (98-107) mmol/L
[2024-08-20] MEDS: IV FLUID CONTINUATION 1,000 ML IV ONE (12:00)
[2024-08-20] MEDS: VERAPAMIL SYRINGE (5 MG/10 ML) INTRAARTER ONE (12:19)
[2024-08-20] MEDS: MIDAZOLAM 2 MG/2 ML VIAL IVP ONE (12:19)
[2024-08-20] MEDS: LIDOCAINE 1% INJ 10MG/ML (30 ML VIAL-PF) SQ ONE (12:19)
[2024-08-20] MEDS: fentaNYL (PF) 50 MCG/1 ML VIAL IVP ONE (12:19)
[2024-08-20] MEDS: HEPARIN SODIUM 1,000 UN/ML (10ML VL) IVP ONE (12:20)
[2024-08-20] MEDS: IOPAMIDOL-370 100ML BTL INJ ONE (12:27)
[2024-08-20] MEDS ORDERED: RX INFO: IV CONTRAST WAS GIVEN 1 EACH MISC MISCELLANE PRN (12:37)
--- NOTE | 2024-08-20 12:37 | P.CARDCATH ---
Date of Procedure: 08/20/24 Description of Procedure: DIAGNOSTIC CORONARY ANGIOGRAPHY and LEFT HEART CATH REPORT PROCEDURES PERFORMED: Left heart catheterization Selective coronary angiography Moderate conscious sedation 15 mins [Ultrasound assisted] Right radial access INDICATION: NSTEMI CONSENT: I have explained the procedural steps of above-mentioned procedures in layman's terms to the patient. I discussed the risks (including but not limited to stroke, emergent vascular or cardiac surgery or ), benefits and alternative therapies for the above-mentioned procedure. I discussed the risks of sedation/analgesia and blood product administration (if indicated). The patient has indicated understanding and acceptance of these risks. Conscious Sedation: Patient's ECG, heart rate, blood pressure, pulse oximetry were monitored throughout the duration of procedure under my direct supervision. 1 mg Versed and 50 mcg Fentanyl were used for induction of moderate conscious sedation. Total duration of moderate concious sedation 15 minutes. PROCEDURAL DETAILS: Patient was prepped and draped in sterile fashion. 1% lidocaine was infiltrated over the right radial artery. Right radial access was obtained via modified seldinger technique. [Ultrasound was used for radial access]. Medications: 5mg of verapamil was administed in the radial sheet. 4000 Units of Heparin was administed once the catheter reached the aortic root Wires and Catheter used: J wire was advanced under fluroscopy to get to aortic root. 5 moldovan JR 4 diagnostic catheter was utilized obtain left ventricular pressure and pressure gradint across aortic valve. 5 moldovan JR 4 diagnostic catheter was used to selectively engage the right coronary ostium. 5 moldovan JL 3.5 diagnostic catheter was utilized to selectively engage the left coronary ostium. Angiographic images were reviewed in detail. Catheter and wire were removed. Radial sheet was flushed. The right radial sheath was removed and a TR band was placed. Patent hemostasis was achieved. The patient tolerated the procedure well. Patient was transported back to the post catheterization holding area in stable condition. TECHNICAL DETAILS Total contrast used: Isovue 50 ml Complications: [none] Estimated Blood loss: less than 15 ml HEMODYNAMICS: Aortic Pressure: 145/75 mmHg. LV pressure: 150/1 mmHg. LVEDP 10 mmHg. There was no significant gradient across the aortic valve. SELECTIVE CORONARY ARTERIOGRAPHY: LEFT MAIN: The left main is short and large caliber vessel. It bifurcates into the LAD and circumflex. Left main appears angiographically normal. LEFT ANTERIOR DESCENDING CORONARY ARTERY: LAD is a large caliber vessel which wraps around to the apex. Proximal mid and distal LAD appears angiographically patent with mild luminal irregularities. LAD gives rise to a medium size diagonal 1 and small size diagonal 2 which appears angiographically patent. LEFT CIRCUMFLEX CORONARY ARTERY: LCx is codominant. It is a large-caliber vessel. It appears angiographically patent. It gives rise to a medium size OM1 branch which appears angiographically patent. Distally LCx gives rise to PL branch which appear angiographically patent. RIGHT CORONARY ARTERY: Codominant vessel small caliber, appears angiographically patent. Distal LAD is Restyl small PDA branch which appears angiographically patent. IMPRESSION: Angiographically patent coronary arteries with mild luminal irregularities Normal LVEDP PLAN: Aggressive risk factor modification per most recent ACC/AHA guidelines. 125 cc fluids for 4 hours Performing Physician Lewis Land MD, FACC, RPVI Thank you for allowing [facility] to participate in this patient's care. Feel free to reach out in case of any followup questions.
[2024-08-20] MEDS: UREA 15 GM POWD.PACK PO SCH (13:31)
[2024-08-20] MEDS: SODIUM CHLORIDE 0.9% 1,000 ML IV SCH (13:32)
--- NOTE | 2024-08-20 15:00 | P.CONS ---
History of Present Illness - Reason for Consult Consult date: 08/20/24 rehab recommendations - Chief Complaint debility 2/2 recent CVA - History of Present Illness Ms Johnson is a 68-year-old right handed female, recently at [facility] for FLORENCIA after a CVA (was at [facility]). Prior to CVA, patient was independent with mobility and ADLs without AD. She was driving. She has a cousin that is local and able to help, has been assisting with her finances already d/t recent CVA. 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 Initial lab work done in the ER showed WBC 9.56, hemoglobin 12.6, platelet count 319, sodium 126, potassium 3.6, BUN 18, creatinine 0.66, glucose 101, troponin 0.022 EKG done in the ER showed heart rate of 105, irregular, no ST segment elevation or depression seen, no T-wave inversions seen. Chest x-ray done in the ER no acute cardiopulmonary disease/process. Cardiology consulted and recommended heart cath. Patient had heart cath on 08/20, no intervention, recommended working on modifying risk factors. PM&R consulted for rehab recommendations. Patient has been seen by therapies, Min to mod assist for bed mobility, min assist with transfers, UB min assist, LB mod assist, toileting max assist, gait 100 ft min assist with SBQC. 08/20/24: Patient states she is still weak on her right side, arm more than her leg. She also reports impaired coordination. She has right facial droop and difficulty with slurred speech. She has a history of migraines, denies current headaches. She denies Cp, SOB, and abdominal pain. She had a BM yesterday, no urinary complaints. She is highly motivated to work with rehab and would like IPR. Review of Systems reviewed, as above in HPI Past Medical History Past Medical History: Atrial Fibrillation, Asthma, CVA/TIA, Hypertension, Osteoarthritis (OA) Additional Past Medical History / Comment(s): lupus, migraines, Stroke (July 2024) History of Any Multi-Drug Resistant Organisms: None Reported Past Surgical History: Cholecystectomy, Hysterectomy, Joint Replacement, Orthopedic Surgery Additional Past Surgical History / Comment(s): lt knee replaced, sinus surgery Past Anesthesia/Blood Transfusion Reactions: Previous Problems w/ Anesthesia Additional Past Anesthesia/Blood Transfusion Reaction / Comm: slow to wake up Past Psychological History: No Psychological Hx Reported Smoking Status: Never smoker Past Alcohol Use History: None Reported Past Drug Use History: None Reported Medications and Allergies Home Medications Medication Instructions Recorded Confirmed Type Losartan Potassium 100 mg PO DAILY@0900 05/23/19 08/17/24 History Montelukast [Singulair] 10 mg PO HS@209905/23/19 08/17/24 History Rivaroxaban [Xarelto] 20 mg PO HS@209907/02/19 08/17/24 History Acetaminophen [Tylenol] 650 mg PO Q6H PRN 08/17/24 08/17/24 History Albuterol Inhaler [Ventolin Hfa 1 puff INHALATION RT-Q6H PRN 08/17/24 08/17/24 History Inhaler] Albuterol Nebulized [Ventolin 2.5 mg INHALATION RT-Q6H PRN 08/17/24 08/17/24 History Nebulized] Atorvastatin [Lipitor] 80 mg PO HS@209908/17/24 08/17/24 History Bismuth Subsalicylate 524 mg PO Q4H PRN 08/17/24 08/17/24 History [Pepto-Bismol] Cetirizine HCl [Zyrtec] 10 mg PO HS@209908/17/24 08/17/24 History Cholecalciferol [Vitamin D3 (25 25 mcg PO DAILY@89908/17/24 08/17/24 History Mcg = 1000 Iu)] Dicyclomine [Bentyl] 10 mg PO TID@06,14,08/17/24 08/17/24 History Fluticasone Propion/Salmeterol 1 puff INHALATION RT-BID@899,209908/17/24 08/17/24 History [Advair 250-50 Diskus] Lactulose 10 - 20 gm PO BID@0900,209908/17/24 08/17/24 History Levothyroxine Sodium [Synthroid] 150 mcg PO DAILY@0600 08/17/24 08/17/24 History Melatonin 5 mg PO HS PRN 08/17/24 08/17/24 History Melatonin 10 mg PO HS PRN 08/17/24 08/17/24 History NIFEdipine XL [Procardia XL] 60 mg PO DAILY@0900 08/17/24 08/17/24 History Sennosides/Docusate Sodium [Senna 1 cap PO BID@0900,2100 08/17/24 08/17/24 History Plus 8.6-50 mg Softgel] Simethicone Chew [Mylicon Chew] 80 mg PO QID PRN 08/17/24 08/17/24 History carvediloL [Coreg] 25 mg PO BID@0900,2100 08/17/24 08/17/24 History hydrALAZINE HCL [Apresoline] 50 mg PO QID@00,06,12,18 08/17/24 08/17/24 History polyethylene glycoL 3350 [Miralax] 17 gm PO BID@0900,2100 PRN #0 08/20/24 08/17/24 Rx Allergies Allergy/AdvReac Type Severity Reaction Status Date / Time prochlorperazine Allergy Anaphylaxis Verified 08/17/24 12:14 [From Compazine] Physical Exam Vitals: Vital Signs Temp Pulse Pulse Resp BP Pulse Ox 08/20/24 08:25 98.4 F 50 L 16 147/73 93 L 08/20/24 07:58 66 08/20/24 07:43 68 08/20/24 04:00 97.9 F 63 18 147/86 96 08/20/24 01:40 18 08/19/24 23:46 58 L 18 138/75 95 08/19/24 20:00 18 08/19/24 16:08 64 08/19/24 15:58 60 08/19/24 15:23 97.8 F 66 18 150/67 97 08/19/24 13:54 61 18 Intake and Output 08/19/24 08/20/24 08/20/24 22:59 06:59 14:59 Intake Total 960 200 Output Total 300 300 Balance 660 -100 Intake: IV 200 Oral 960 Output: Urine 300 300 Other: Voiding Method Toilet Toilet Toilet External Catheter External Catheter External Catheter # Bowel Movements 1 Weight 68.7 kg General: WDWN elderly female, laying in bed with HOB elevated, alert, NAD HEENT: head normocephalic, atraumatic; moist mucous membranes, external ears in tact with hearing intact to conversational speech 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 Abdomen: soft, NT, ND MSK: full ROM left UE and LE, Right hemiparesis UE > LE MMT: LUE 5/5, LLE 5/5; R: SABD 1/5, EF/EE 0/5, movement of right pinky, R HF 2+/5, RKE 4/5, DF and EHL 4+5 Neuro: Alert, conversational. Oriented x 4. Speech is dysarthric MSR: 2+/4 bilateral biceps, triceps, brachioradialis, patella, Achilles CN right facial droop, right tongue deviation Sensation intact to light touch bilateral UE and LEs Coordination: FTN and HTS impaired on right side Psych: mood calm, affect appropriate Extremities: calves supple, non tender, no LE edema Skin: intact where exposed except IV and right wrist cardiac cath site. Results CBC & Chem 7: 08/19/24 05:50 08/20/24 06:46 Labs: Abnormal Lab Results - Last 24 Hours (Table) 08/20/24 Range/Units 06:46 Sodium 129 L (137-145) mmol/L Chloride 97 L (98-107) mmol/L Assessment and Plan Assessment: #Impaired gait and ADLs secondary to right sided hemiparesis from recent (July 2024) CVA -therapies #Dysarthria #Afib with RVR #Elevated troponin #Hyponatremia #History of LILI/cardioversion, 07/2019 #Comorbidities:Asthma, HTN, OA, hypothyroidism, migraines, Lupus #Your medical dx and management Dispo: Patient is noted to be below baseline function, would benefit from a structured Inpatient rehabilitation stay with 3 hrs of therapy a day, 6-7 days a week with Physical Therapy, Occupational Therapy and Speech Therapy (if indicated). Patient has medical complexity requiring nursing services, close physician medical management, and interdisciplinary team approach for rehab. Patient is motivated and has good social support. Patient WILL need insurance authorization. Patient is agreeable for IPR. [facility] Liaison aware and will submit for autho rization. Patient seen in collaboration with Dr Tijerina. Thank you for consulting our services.
[2024-08-20 16:12] LABS: Creatinine,Urine Random 39.7 mg/dL
[2024-08-20] MEDS: MAGNESIUM SULFATE-D5W PMX 1 GM in DEXTROSE/WATER 1 100ML.BAG IVPB ONE (16:26)
[2024-08-20] MEDS: RIVAROXABAN 20 MG TAB PO SCH (18:09)
--- NOTE | 2024-08-20 22:27 | P.PN ---
Subjective Progress Note Date: 08/18/24 History of present illness; patientis a 68-year-old lady with past medical history significant for atrial fibrillation on Xarelto who presented to the ER because of chest discomfort and palpitation. Patient stated that she was all right couple of days back when she started noticing palpitations, patient also complaining of chest discomfort which is central location, nonradiating, no aggravating or relieving factors associated with chest pain. Patient denies any shortness of breath there is no complaint of orthopnea or PND. There is no complaint of swelling of lower extremities patient denies any fever or chills. Denies any nausea, vomiting abdominal pain. Patient denies any complaint of dizziness. There is no complaint of headache. Because of the symptoms patient presented the ER Initial lab work done in the ER showed WBC 9.56, hemoglobin 12.6, platelet count 319, sodium 126, potassium 3.6, BUN 18, creatinine 0.66, glucose 101, troponin 0.022 EKG done in the ER showed heart rate of 105, irregular, no ST segment elevation or depression seen, no T-wave inversions seen. Chest x-ray done in the ER no acute cardiopulmonary disease/process Patient admitted to internal medicine service 08/18/2024 Patient is resting in the bed. Awake alert and oriented x 3. Currently on room air. No complaints of chest pain or shortness of breath. Repeat troponin level came back at 0.118. 2D echocardiogram report pending. Laboratory data showed sodium 124 potassium 4.0 chloride 93 bicarb is 25 BUN 17 and creatinine 0.58 and blood sugar 106 Cardiology is following. Plan for cardiac catheterization on Sunday. Current medications reviewed. PHYSICAL EXAMINATION: GENERAL: The patient is alert and oriented x3, not in any acute distress. Well developed, well nourished. HEENT: Pupils are round and equally reacting to light. EOMI. No scleral icterus. No conjunctival pallor. Normocephalic, atraumatic. No pharyngeal erythema. No thyromegaly. CARDIOVASCULAR: S1 and S2 present. No murmurs, rubs, or gallops. PULMONARY: Chest is clear to auscultation, no wheezing or crackles. ABDOMEN: Soft, nontender, nondistended, normoactive bowel sounds. No palpable organomegaly. MUSCULOSKELETAL: No joint swelling or deformity. EXTREMITIES: No cyanosis, clubbing, or pedal edema. NEUROLOGICAL: Has right-sided weakness from prior stroke, SKIN: No rashes. Assessment and plan Paroxysmal atrial fibrillation with RVR Chest pain with elevated troponin Hyponatremia History of LILI/cardioversion, 07/2019 History of CVA with residual right-sided weakness, July 2024 History of hypertension History of hypothyroidism Monitor vital signs Monitor CBC Monitor CMP Continue telemetry monitoring Ordered 2D echo Patient was on Cardizem drip Continue Xarelto Resume Synthroid Cardiology is following. Planning for cardiac catheterization due to elevated troponin level and chest pain. Labs and medication were reviewed. Monitor labs and vitals. DVT and GI prophylaxis. Dictation was produced using [employer] dictation software. please excuse any grammatical, word or spelling errors. Objective - Vital Signs Vital signs: Vital Signs Temp 97.6 F 08/18/24 04:54 Pulse 62 08/18/24 08:21 Resp 19 08/18/24 08:17 BP 156/73 08/18/24 08:17 Pulse Ox 94 L 08/18/24 08:17 FiO2 Intake & Output 08/17/24 08/18/24 08/18/24 18:59 06:59 18:59 Intake Total 240 Output Total 400 Balance -400 240 Weight 74 kg Intake: Oral 240 Output: Urine 400 Other: Voiding Method Toilet Toilet External Catheter # Voids 1 1 # Bowel Movements 1 1 - Labs CBC & Chem 7: 08/19/24 05:50 08/20/24 06:46 Assessment and Plan Time with Patient: Greater than 30
--- NOTE | 2024-08-20 22:30 | P.PN ---
Subjective Progress Note Date: 08/19/24 History of present illness; patientis a 68-year-old lady with past medical history significant for atrial fibrillation on Xarelto who presented to the ER because of chest discomfort and palpitation. Patient stated that she was all right couple of days back when she started noticing palpitations, patient also complaining of chest discomfort which is central location, nonradiating, no aggravating or relieving factors associated with chest pain. Patient denies any shortness of breath there is no complaint of orthopnea or PND. There is no complaint of swelling of lower extremities patient denies any fever or chills. Denies any nausea, vomiting abdominal pain. Patient denies any complaint of dizziness. There is no complaint of headache. Because of the symptoms patient presented the ER Initial lab work done in the ER showed WBC 9.56, hemoglobin 12.6, platelet count 319, sodium 126, potassium 3.6, BUN 18, creatinine 0.66, glucose 101, troponin 0.022 EKG done in the ER showed heart rate of 105, irregular, no ST segment elevation or depression seen, no T-wave inversions seen. Chest x-ray done in the ER no acute cardiopulmonary disease/process Patient admitted to internal medicine service 08/18/2024 Patient is resting in the bed. Awake alert and oriented x 3. Currently on room air. No complaints of chest pain or shortness of breath. Repeat troponin level came back at 0.118. 2D echocardiogram report pending. Laboratory data showed sodium 124 potassium 4.0 chloride 93 bicarb is 25 BUN 17 and creatinine 0.58 and blood sugar 106 Cardiology is following. Plan for cardiac catheterization on Sunday. Current medications reviewed. 08/19/2024 Patient is resting in the bed. Awake alert and oriented x 3. No complaints of chest pain or shortness of breath. Currently on room air. Xarelto is on hold and cardiology is planning for catheterization on Sunday. Laboratory data showed WBC 6.39 hemoglobin 11.0 and platelets 261 sodium 129 potassium 3.5 chloride 95 bicarb is 29 BUN 14 and creatinine 0.64 and blood sugar 92 and TSH 3.310 2D echocardiogram showed normal EF, mild to moderate mitral and aortic regurgitation. Mild tricuspid regurgitation. No pericardial effusion. No pulmonary hypertension. PHYSICAL EXAMINATION: GENERAL: The patient is alert and oriented x3, not in any acute distress. Well developed, well nourished. HEENT: Pupils are round and equally reacting to light. EOMI. No scleral icterus. No conjunctival pallor. Normocephalic, atraumatic. No pharyngeal erythema. No thyromegaly. CARDIOVASCULAR: S1 and S2 present. No murmurs, rubs, or gallops. PULMONARY: Chest is clear to auscultation, no wheezing or crackles. ABDOMEN: Soft, nontender, nondistended, normoactive bowel sounds. No palpable organomegaly. MUSCULOSKELETAL: No joint swelling or deformity. EXTREMITIES: No cyanosis, clubbing, or pedal edema. NEUROLOGICAL: Has right-sided weakness from prior stroke, SKIN: No rashes. Assessment and plan Paroxysmal atrial fibrillation with RVR Chest pain with elevated troponin Hyponatremia History of LILI/cardioversion, 07/2019 History of CVA with residual right-sided weakness, July 2024 History of hypertension History of hypothyroidism Monitor vital signs Monitor CBC Monitor CMP Continue telemetry monitoring Ordered 2D echo Patient was on Cardizem drip Xarelto is on hold Resume Synthroid Cardiology is following. Planning for cardiac catheterization tomorrow due to elevated troponin level and chest pain. Labs and medication were reviewed. Monitor labs and vitals. DVT and GI prophylaxis. Dictation was produced using [employer] dictation software. please excuse any grammatical, word or spelling errors. Objective - Vital Signs Vital signs: Vital Signs Temp 97.8 F 08/19/24 15:23 Pulse 64 08/19/24 16:08 Resp 18 08/19/24 20:00 BP 150/67 08/19/24 15:23 Pulse Ox 97 08/19/24 15:23 FiO2 Intake & Output 08/19/24 08/19/24 08/20/24 06:59 18:59 06:59 Intake Total 1200 Output Total 1100 1900 Balance -1100 -700 Weight 74 kg Intake: Oral 1200 Output: Urine 1100 1900 Other: Voiding Method Toilet Toilet Toilet External Catheter External Catheter External Catheter # Voids 1 1 # Bowel Movements 1 - Labs CBC & Chem 7: 08/19/24 05:50 08/20/24 06:46 Labs: Abnormal Lab Results - Last 24 Hours (Table) 08/19/24 08/19/24 Range/Units 05:50 05:50 RBC 3.54 L (4.10-5.20) 10*6/uL Hgb 11.0 L (12.0-15.0) g/dL Hct 31.8 L (37.2-46.3) % Eosinophils # 0.36 H (0.04-0.35) 10*3/uL Sodium 129 L (137-145) mmol/L Chloride 95 L (98-107) mmol/L
--- NOTE | 2024-08-20 22:34 | P.PN ---
Subjective Progress Note Date: 08/20/24 History of present illness; patientis a 68-year-old lady with past medical history significant for atrial fibrillation on Xarelto who presented to the ER because of chest discomfort and palpitation. Patient stated that she was all right couple of days back when she started noticing palpitations, patient also complaining of chest discomfort which is central location, nonradiating, no aggravating or relieving factors associated with chest pain. Patient denies any shortness of breath there is no complaint of orthopnea or PND. There is no complaint of swelling of lower extremities patient denies any fever or chills. Denies any nausea, vomiting abdominal pain. Patient denies any complaint of dizziness. There is no complaint of headache. Because of the symptoms patient presented the ER Initial lab work done in the ER showed WBC 9.56, hemoglobin 12.6, platelet count 319, sodium 126, potassium 3.6, BUN 18, creatinine 0.66, glucose 101, troponin 0.022 EKG done in the ER showed heart rate of 105, irregular, no ST segment elevation or depression seen, no T-wave inversions seen. Chest x-ray done in the ER no acute cardiopulmonary disease/process Patient admitted to internal medicine service 08/18/2024 Patient is resting in the bed. Awake alert and oriented x 3. Currently on room air. No complaints of chest pain or shortness of breath. Repeat troponin level came back at 0.118. 2D echocardiogram report pending. Laboratory data showed sodium 124 potassium 4.0 chloride 93 bicarb is 25 BUN 17 and creatinine 0.58 and blood sugar 106 Cardiology is following. Plan for cardiac catheterization on Sunday. Current medications reviewed. 08/19/2024 Patient is resting in the bed. Awake alert and oriented x 3. No complaints of chest pain or shortness of breath. Currently on room air. Xarelto is on hold and cardiology is planning for catheterization on Sunday. Laboratory data showed WBC 6.39 hemoglobin 11.0 and platelets 261 sodium 129 potassium 3.5 chloride 95 bicarb is 29 BUN 14 and creatinine 0.64 and blood sugar 92 and TSH 3.310 2D echocardiogram showed normal EF, mild to moderate mitral and aortic regurgitation. Mild tricuspid regurgitation. No pericardial effusion. No pulmonary hypertension. 08/20/2024 Patient is status post cardiac catheterization today. Showed angiographically patent coronary arteries with mild luminal irregularities. Patient is currently troponin x 3. No complaints of chest pain or shortness of breath currently on room air. Laboratory data showed sodium level improved to 129. Patient has been continued on fluid restriction. Patient does not want to go to half-way facility and IPR team was consulted. Patient will be restarted back on Xarelto. Cardiology and nephrology is on board. PHYSICAL EXAMINATION: GENERAL: The patient is alert and oriented x3, not in any acute distress. Well developed, well nourished. HEENT: Pupils are round and equally reacting to light. EOMI. No scleral icterus. No conjunctival pallor. Normocephalic, atraumatic. No pharyngeal erythema. No thyromegaly. CARDIOVASCULAR: S1 and S2 present. No murmurs, rubs, or gallops. PULMONARY: Chest is clear to auscultation, no wheezing or crackles. ABDOMEN: Soft, nontender, nondistended, normoactive bowel sounds. No palpable organomegaly. MUSCULOSKELETAL: No joint swelling or deformity. EXTREMITIES: No cyanosis, clubbing, or pedal edema. NEUROLOGICAL: Has right-sided weakness from prior stroke, SKIN: No rashes. Assessment and plan Paroxysmal atrial fibrillation with RVR Chest pain with elevated troponin. Status post cardiac catheterization showed patent coronaries. Hyponatremia euvolemic. Due to increased fluid intake. History of LILI/cardioversion, 07/2019 History of CVA with residual right-sided weakness, July 2024 History of hypertension History of hypothyroidism Monitor vital signs Monitor CBC Monitor CMP Continue telemetry monitoring Xarelto will be restarted. Continue with Synthroid Cardiology is following. Status post cardiac catheterization on 08/20/2024. Nephrology is on board. Continue with fluid restriction 1500 cc. Labs and medication were reviewed. Monitor labs and vitals. DVT and GI prophylaxis. Inpatient rehab team was consulted Dictation was produced using [employer] dictation software. please excuse any gra mmatical, word or spelling errors. Objective - Vital Signs Vital signs: Vital Signs Temp 97.9 F 08/20/24 15:35 Pulse 69 08/20/24 15:46 Resp 16 08/20/24 15:35 BP 125/67 08/20/24 15:35 Pulse Ox 98 08/20/24 15:35 FiO2 Intake & Output 08/20/24 08/20/24 08/21/24 06:59 18:59 06:59 Intake Total 380 Output Total 1350 Balance -970 Weight 68.7 kg Intake: IV 200 Oral 180 Output: Urine 1350 Other: Voiding Method Toilet Toilet External Catheter External Catheter - Labs CBC & Chem 7: 08/19/24 05:50 08/20/24 06:46 Labs: Abnormal Lab Results - Last 24 Hours (Table) 08/20/24 08/20/24 Range/Units 06:46 15:38 Sodium 129 L (137-145) mmol/L Chloride 97 L (98-107) mmol/L U Random Total Protein 15 H (<12) mg/dL
[2024-08-21 08:50] LABS: Basophils # (A) 0.09 10*3/uL (0.00-0.10); Basophils % (A) 1.6 %; Eosinophils # (A) 0.44 10*3/uL (0.04-0.35); Eosinophils % (A) 7.6 %; HCT 33.6 % (37.2-46.3); HGB 11.6 g/dL (12.0-15.0); Lymphocytes # (A) 1.11 10*3/uL (0.90-5.00); Lymphocytes % (A) 19.3 %; MCH 31.8 pg (27.0-32.0); MCHC 34.5 g/dL (32.0-37.0); MCV 92.1 fL (80.0-97.0); Mean Platelet Volume 10.3 fL (9.5-12.2); Monocytes # (A) 0.43 10*3/uL (0.20-1.00); Monocytes % (A) 7.5 %; Neutrophils # (A) 3.68 10*3/uL (1.80-7.70); Neutrophils % (A) 63.8 %; Platelet Count 276 10*3/uL (140-440); RBC 3.65 10*6/uL (4.10-5.20); WBC 5.76 10*3/uL (4.50-10.00)
[2024-08-21 09:24] VITALS: BP 118/64; PULSE 58; TEMP 98.2
[2024-08-21 09:29] LABS: African American GFR (CKD) >90 (>60 ml/min/1.73 sqM); Anion Gap 6 mmol/L; Blood Urea Nitrogen 38 mg/dL (7-17); Calcium 9.3 mg/dL (8.4-10.2); Carbon Dioxide 28 mmol/L (22-30); Chloride 97 mmol/L (98-107); Glucose 106 mg/dL (74-99); Non-African American GFR(CKD) 88 (>60 ml/min/1.73 sqM); Potassium 3.8 mmol/L (3.5-5.1); Sodium 131 mmol/L (137-145)
--- NOTE | 2024-08-21 10:00 | P.PN ---
Subjective Patient is seen in follow-up for hyponatremia. Sodium level improved to 2 131. Denies chest pain or shortness of breath. Status post cardiac cath yesterday. No active complaints. Vital signs are stable. General: No acute distress. HEENT: Head exam is unremarkable. LUNGS: No audible rhonchi or wheezes. HEART: Rate and Rhythm are regular. ABDOMEN: Nontender. EXTREMITITES: No edema. Objective - Vital Signs Vital signs: Vital Signs Temp 98.2 F 08/21/24 08:00 Pulse 56 L 08/21/24 08:27 Resp 16 08/21/24 08:00 BP 118/64 08/21/24 08:00 Pulse Ox 95 08/21/24 08:00 FiO2 Intake & Output 08/20/24 08/21/24 08/21/24 18:59 06:59 18:59 Intake Total 380 150 Output Total 1350 400 650 Balance -970 -250 -650 Weight 68.7 kg Intake: IV 200 Oral 180 150 Output: Urine 1350 400 650 Other: Voiding Method Toilet Toilet External Catheter External Catheter # Bowel Movements 1 - Labs CBC & Chem 7: 08/21/24 07:38 08/21/24 07:38 Labs: Abnormal Lab Results - Last 24 Hours (Table) 08/20/24 08/20/24 08/21/24 Range/Units 15:38 15:38 07:38 RBC (4.10-5.20) 10*6/uL Hgb (12.0-15.0) g/dL Hct (37.2-46.3) % Eosinophils # (0.04-0.35) 10*3/uL Sodium 131 L (137-145) mmol/L Chloride 97 L (98-107) mmol/L BUN 38 H (7-17) mg/dL Glucose 106 H (74-99) mg/dL Urine Osmolality 324 L (400-1100) mOsm/kg U Random Total Protein 15 H (<12) mg/dL 08/21/24 Range/Units 07:38 RBC 3.65 L (4.10-5.20) 10*6/uL Hgb 11.6 L (12.0-15.0) g/dL Hct 33.6 L (37.2-46.3) % Eosinophils # 0.44 H (0.04-0.35) 10*3/uL Sodium (137-145) mmol/L Chloride (98-107) mmol/L BUN (7-17) mg/dL Glucose (74-99) mg/dL Urine Osmolality (400-1100) mOsm/kg U Random Total Protein (<12) mg/dL Assessment and Plan Plan: Assessment: 1. Hyponatremia, euvolemic. Due to excessive fluid intake. Sodium level improved to 131. TSH normal. 2. A-fib with RVR status post Cardizem drip. Now on oral meds. 3. Benign hypertension. Stable. 4. History of CVA. Plan: Encouraged oral intake. Maintain 1200 cc fluid restriction. Maintain urea for 3 days postdischarge. Continue to monitor. Status post cardiac cath August 20, 2024 which showed patent coronary arteries. Repeat BMP and magnesium level 2 to 3 days postdischarge. Follow-up patient 1 week postdischarge.
--- NOTE | 2024-08-21 10:40 | P.DS ---
Providers Date of admission: 08/16/24 20:20 Expected date of discharge: 08/21/24 Attending physician: Omega Schmidt MD Consults: 08/16/24 22:28 Consult Physician Stat Consulting Provider: Moose Miranda Consult Reason/Comments: A-fib with RVR, chest pain Do you want consulting provider notified?: Yes, Notify in am 08/18/24 22:06 Consult Physician Routine Consulting Provider: Abel Massey Consult Reason/Comments: Hyponatremia Do you want consulting provider notified?: Yes, Notify in am 08/20/24 10:12 Consult Physician Routine Consulting Provider: Ariel Tijerina Consult Reason/Comments: eval for ipr Do you want consulting provider notified?: Yes Primary care physician: Norberto Kruger Hospital Course: Final diagnosis Paroxysmal atrial fibrillation with RVR, currently rate controlled Chest pain with elevated troponin. Status post cardiac catheterization showed patent coronaries. Hyponatremia euvolemic. Due to increased fluid intake. Maintained on fluid restrictions and improving and sodium is 131 today History of LILI/cardioversion, 07/2019 History of CVA with residual right-sided weakness, July 2024 History of hypertension History of hypothyroidism GI prophylactics DVT prophylaxis Full code Discharge disposition Patient is being discharged in a stable condition with guarded prognosis to [facility] inpatient rehab center. Patient will follow-up with Dr. Kruger in the outpatient setting upon discharge. Patient is to continue with 1200 cc fluid restriction daily along with repeat labs of CBC, CMP, magnesium in 2 to 3 days and close outpatient follow-up with nephrology, neurology, and cardiology as scheduled. Total time taken is greater than 35 minutes. Hospital course This is a 68-year-old female who was recently admitted with chest discomfort and palpitations patient reports this started a few days back that was centralized and nonradiating although continued to persist and came here for further evaluation. Patient also noted to have hyponatremia of 126 on admission and mildly elevated troponin with multiple consultations following including nephrology and cardiology. Sodium is improved at 131 today recommending to continue with fluid restrictions and close outpatient follow-up with labs and nephrology consult in 1 to 2 weeks. Patient was evaluated by physical therapy as she was recently at [facility] post CVA recommending inpatient rehab. Patient was evaluated by [facility] physicians and deemed appropriate for inpatient rehab and has been accepted. Patient has received insurance authorization and has been cleared by consultations for discharge to [facility] today. Patient is postcardiac catheterization revealing patent coronary arteries recommending outpatient follow-up and continue with current regimen. Patient is also instructed to continue with urea for the next 3 days postdischarge per nephrology recommendations. Please refer to other consultation notes for further HPI. Currently no reports of chest pain, shortness of breath, or palpitations. Patient is afebrile. No reports of nausea or vomiting and patient is tolerating diet. Patient will be going to [facility] for inpatient rehab today. Physical exam: Gen: This is a 68-year-old female who is awake, alert and oriented, well- developed, elderly appearing, thin built HEENT: Head is atraumatic, normocephalic. Pupils equal, round. Sclerae is anicteric. NECK: Supple. No JVD. No lymphadenopathy. No thyromegaly. LUNGS: Diminished breath sounds bilaterally otherwise clear to auscultation. No wheezes or rhonchi. No intercostal retractions. HEART: S1, S2 are muffled ABDOMEN: Soft. Bowel sounds are present. No masses. No tenderness. EXTREMITIES: No pedal edema. No calf tenderness. NEUROLOGICAL: Patient is awake, alert and oriented x3. Cranial nerves 2 through 12 are grossly intact. Diffusely weak Please refer to medication reconciliation sheet for a list of medications. The impression and plan of care has been dictated by Rosalia Burrell, Nurse Practitioner as directed. Dr. Jamel MD I have performed a history and examination and MDM of this patient, discussed t he same with the dictator, and agree with the dictator's assessment and plan as written ,documented as a scribe. Based on total visit time, I have performed more than 50% of the visit. Patient Condition at Discharge: Fair Plan - Discharge Summary Discharge Rx Participant: Yes New Discharge Prescriptions: New Nitroglycerin Sl Tabs [Nitrostat] 0.4 mg SUBLINGUAL Q5M PRN tab PRN Reason: Chest Pain Continue Montelukast [Singulair] 10 mg PO HS@2100 Losartan Potassium 100 mg PO DAILY@0900 Rivaroxaban [Xarelto] 20 mg PO HS@2100 Simethicone Chew [Mylicon Chew] 80 mg PO QID PRN PRN Reason: Gi Upset Albuterol Inhaler [Ventolin Hfa Inhaler] 1 puff INHALATION RT-Q6H PRN PRN Reason: Shortness Of Breath Dicyclomine [Bentyl] 10 mg PO TID@,, Lactulose 10 - 20 gm PO BID@899,2099 NIFEdipine XL [Procardia XL] 60 mg PO DAILY@0900 Cholecalciferol [Vitamin D3 (25 Mcg = 1000 Iu)] 25 mcg PO DAILY@0900 Atorvastatin [Lipitor] 80 mg PO HS@2099 Cetirizine HCl [Zyrtec] 10 mg PO HS@2099 Acetaminophen [Tylenol] 650 mg PO Q6H PRN PRN Reason: Pain Or Fever > 100.5 Bismuth Subsalicylate [Pepto-Bismol] 524 mg PO Q4H PRN PRN Reason: UPSET STOMACH Melatonin 10 mg PO HS PRN PRN Reason: SLEEP/SUPPLEMENT Melatonin 5 mg PO HS PRN PRN Reason: FOR SUPPLEMENT Albuterol Nebulized [Ventolin Nebulized] 2.5 mg INHALATION RT-Q6H PRN PRN Reason: Shortness Of Breath hydrALAZINE HCL [Apresoline] 50 mg PO QID@00,06,12,18 Sennosides/Docusate Sodium [Senna Plus 8.6-50 mg Softgel] 1 cap PO BID@899,2099 carvediloL [Coreg] 25 mg PO BID@09,2099 Fluticasone Propion/Salmeterol [Advair 250-50 Diskus] 1 puff INHALATION RT- BID@899,2099 Levothyroxine Sodium [Synthroid] 150 mcg PO DAILY@06 Changed polyethylene glycoL 3350 [Miralax] 17 gm PO BID@00,2099 PRN #0 PRN Reason: Constipation Discharge Medication List Losartan Potassium 100 mg PO DAILY@0900 05/23/19 [History] Montelukast [Singulair] 10 mg PO HS@209905/23/19 [History] Rivaroxaban [Xarelto] 20 mg PO HS@209907/02/19 [History] Acetaminophen [Tylenol] 650 mg PO Q6H PRN 08/17/24 [History] Albuterol Inhaler [Ventolin Hfa Inhaler] 1 puff INHALATION RT-Q6H PRN 08/17/24 [History] Albuterol Nebulized [Ventolin Nebulized] 2.5 mg INHALATION RT-Q6H PRN 08/17/24 [History] Atorvastatin [Lipitor] 80 mg PO HS@209908/17/24 [History] Bismuth Subsalicylate [Pepto-Bismol] 524 mg PO Q4H PRN 08/17/24 [History] Cetirizine HCl [Zyrtec] 10 mg PO HS@209908/17/24 [History] Cholecalciferol [Vitamin D3 (25 Mcg = 1000 Iu)] 25 mcg PO DAILY@0908/17/24 [History] Dicyclomine [Bentyl] 10 mg PO TID@,,08/17/24 [History] Fluticasone Propion/Salmeterol [Advair 250-50 Diskus] 1 puff INHALATION RT- BID@0900,209908/17/24 [History] Lactulose 10 - 20 gm PO BID@0900,209908/17/24 [History] Levothyroxine Sodium [Synthroid] 150 mcg PO DAILY@0600 08/17/24 [History] Melatonin 5 mg PO HS PRN 08/17/24 [History] Melatonin 10 mg PO HS PRN 08/17/24 [History] NIFEdipine XL [Procardia XL] 60 mg PO DAILY@0900 08/17/24 [History] Sennosides/Docusate Sodium [Senna Plus 8.6-50 mg Softgel] 1 cap PO BID@0900,209908/17/24 [History] Simethicone Chew [Mylicon Chew] 80 mg PO QID PRN 08/17/24 [History] carvediloL [Coreg] 25 mg PO BID@0900,209908/17/24 [History] hydrALAZINE HCL [Apresoline] 50 mg PO QID@00,06,12,18 08/17/24 [History] polyethylene glycoL 3350 [Miralax] 17 gm PO BID@0900,2100 PRN #0 08/20/24 [Rx] Nitroglycerin Sl Tabs [Nitrostat] 0.4 mg SUBLINGUAL Q5M PRN tab 08/21/24 [Rx] Follow up Appointment(s)/Referral(s): Norberto Kruger MD [Primary Care Provider] - 1-2 days Adrienne Chew MD [REFERRING] - 1 Week Activity/Diet/Wound Care/Special Instructions: Patient is going to [facility] rehab center Activity as tolerated Continue with urea for 3 days postdischarge per nephrology Patient is to maintain a 1200 cc fluid restriction Repeat BMP, CBC, magnesium in 2 to 3 days Follow-up with nephrology outpatient Follow-up with cardiology outpatient Patient is to continue with a heart healthy gluten-free diet. Follow-up with neurology outpatient Follow-up with primary care provider in the outpatient setting Discharge Disposition: HOME WITH HOME HEALTH SERVICES
== END 2024-08-21 12:00 | DRG 281 ==
LOC: EC 18:26 → 3SCARD 20:20
PROVIDERS: ADMIT Internal Medicine; ATTEND Internal Medicine
PROC: 3E033RZ Introduction of Antiarrhythmic into Peripheral Vein, Percutaneous Approach (ICD-10-PCS; 2024-08-16)
PROC: B2111ZZ Fluoroscopy of Multiple Coronary Arteries using Low Osmolar Contrast (ICD-10-PCS; 2024-08-20)
PROC: 4A023N7 Measurement of Cardiac Sampling and Pressure, Left Heart, Percutaneous Approach (ICD-10-PCS; principal; 2024-08-20 09:00)
DX: I48.0 Paroxysmal atrial fibrillation (principal); E87.1 Hypo-osmolality and hyponatremia; I21.A1 Myocardial infarction type 2; Z66 Do not resuscitate; I69.351 Hemiplegia and hemiparesis following cerebral infarction affecting right dominant side; M32.9 Systemic lupus erythematosus, unspecified; I10 Essential (primary) hypertension; E03.9 Hypothyroidism, unspecified; J45.909 Unspecified asthma, uncomplicated; I08.0 Rheumatic disorders of both mitral and aortic valves; R47.81 Slurred speech; G43.909 Migraine, unspecified, not intractable, without status migrainosus; Z79.01 Long term (current) use of anticoagulants; Z79.890 Hormone replacement therapy; R29.810 Facial weakness; Z79.899 Other long term (current) drug therapy; Z90.710 Acquired absence of both cervix and uterus; Z90.49 Acquired absence of other specified parts of digestive tract; Z96.652 Presence of left artificial knee joint; Z88.8 Allergy status to other drugs, medicaments and biological substances
CPT/HCPCS: 36415; 71046; 80048; 80053; 82570; 83735; 83930; 83935; 84156; 84300; 84443; 84484; 85025; 85610; 85730; 93005; 93306; 93458; 94640; 96365; 96366; 99285